=== PATIENT | female | born 1940 | race Caucasian/White ===

== ENCOUNTER → 2024-11-26 | Outpatient (CLI) | payer OTHER, SELFPAY ==
[2024-11-26 16:12] LABS: Hematocrit 38.4 % (37-47); Hemoglobin 12.0 g/dL (12.0-15.0); Immature Granulocytes Count 0.030 X10^3/uL (0.0-0.0); Mean Corp Hgb Conc 31.3 g/dL (32-36); Mean Corpuscular Volume 91.2 fL (81-99); Mean Platelet Vol. 11.1 fl (6.2-12.0); NRBC Flagged by Analyzer 0 % (0-5); Platelet Count 302 K/mm3 (150-450); RBC Distribution Width CV 13.2 % (11.6-14.6); RBC Distribution Width SD 44.0 fl (35.1-43.9); Red Blood Count 4.21 M/mm3 (4.2-5.4); White Blood Count 8.0 K/mm3 (4.4-11.0)
[2024-11-26 17:17] LABS: AST(SGOT) 27 U/L (<=31); Alanine Aminotransfer ALT/SGPT 17 U/L (<=34); Albumin, Serum 3.8 g/dL (3.4-4.8); Alkaline Phosphatase 105 U/L (35-104); Anion Gap 13 (5-15); BUN 12 mg/dL (4-19); BUN/Creat Ratio 16.3 RATIO (10-20); Calcium,Total 9.5 mg/dL (7.6-11.0); Carbon Dioxide 19.6 mmol/L (21.0-32.0); Chloride 105 mmol/L (98-108); Cholesterol 265 mg/dL (<=200); Globulin 3.2 g/dL (2.2-4.2); Glucose 92 mg/dL (70-99); Low Density Lipoprotein Calc. 186 mg/dL; Potassium 4.4 mmol/L (3.3-5.1); Triglycerides 103 mg/dL; Very Low Density Lipoprotein 21 mg/dL (5-40); Vitamin D,25 Hydroxy 25.6 ng/mL (30-100); cholesterol:hdl ratio screen 4.52
[2024-11-26 17:28] LABS: Hepatitis C Antibody Nonreactive (Nonreactive)
== END | disposition home or self-care (01) ==
LOC: POLAB3 15:26
PROVIDERS: PCP Family Medicine Geriatric Medicine; Visit Provider Family Medicine Geriatric Medicine
DX: E03.9 Hypothyroidism, unspecified (principal); Z13.89 Encounter for screening for other disorder; E55.9 Vitamin D deficiency, unspecified
CPT/HCPCS: 36415; 80053; 80061; 82306; 84443; 85025; 86803

== ENCOUNTER → 2024-11-29 | Outpatient (CLI) | payer OTHER, SELFPAY ==
--- NOTE | 2024-11-29 08:00 | RAD_ITS ---
PROCEDURE: ABD INC DECUB AND/OR ERECT 11/29/2024 REASON FOR EXAM: CHRONIC DIARRHEA TECHNIQUE: Three-view supine and upright abdomen COMPARISON: None. RAD/Abd Inc Decub and/or Erect IMPRESSION: No evidence of pneumoperitoneum. Right hemidiaphragm elevation is noted. A partially calcified aorta is seen. Minimal left and mild right sacroiliac joint degenerative changes are seen. [id number] degenerative changes are seen throughout the spine. The bowel-gas pattern is unremarkable. No excess stool burden is seen. No mass or mass effect is noted. Reading Location: [place] [id number]
== END | disposition home or self-care (01) ==
LOC: RAD 07:52
PROVIDERS: PCP Family Medicine Geriatric Medicine; Referring Provider Family Medicine Geriatric Medicine; Visit Provider Family Medicine Geriatric Medicine
DX: K52.9 Noninfective gastroenteritis and colitis, unspecified (principal)
CPT/HCPCS: 74019

== ENCOUNTER → 2024-12-31 | Outpatient (CLI) | payer OTHER, SELFPAY ==
--- NOTE | 2024-12-31 10:57 | RAD_ITS ---
PROCEDURE: KNEE 3 VIEWS 12/31/2024 REASON FOR EXAM: LEG CRAMPS TECHNIQUE: Procedure Code: RADPAT Modality: DX Procedure: KNEE 3 VIEWS Laterality: FINDINGS: No evidence acute fracture or dislocation. Moderate degenerative changes of the knee. No knee joint effusion. RAD/Knee 3 Views IMPRESSION: No acute osseous abnormalities. Osteoarthrosis. Reading Location: [id number]
== END | disposition home or self-care (01) ==
LOC: RAD 10:52
PROVIDERS: PCP Family Medicine Geriatric Medicine; Referring Provider Family Medicine Geriatric Medicine; Visit Provider Family Medicine Geriatric Medicine
DX: R25.2 Cramp and spasm (principal)
CPT/HCPCS: 73562

== ENCOUNTER → 2025-02-06 | Outpatient (CLI) | payer MEDICARE, SELFPAY ==
[2025-02-06 11:38] LABS: Cholesterol 285 mg/dL (<=200); Low Density Lipoprotein Calc. 211 mg/dL; Triglycerides 68 mg/dL; Very Low Density Lipoprotein 14 mg/dL (5-40); cholesterol:hdl ratio screen 4.69
== END | disposition home or self-care (01) ==
PROVIDERS: PCP Family Medicine Geriatric Medicine; Referring Provider Internal Medicine Cardiovascular Disease; Visit Provider Internal Medicine Cardiovascular Disease
DX: I10 Essential (primary) hypertension (principal); I25.10 Atherosclerotic heart disease of native coronary artery without angina pectoris; Z86.79 Personal history of other diseases of the circulatory system; Z95.0 Presence of cardiac pacemaker
CPT/HCPCS: 36415; 80061

== ENCOUNTER → 2025-02-14 | Outpatient (CLI) | payer MEDICARE, SELFPAY ==
[2025-02-14 12:18] LABS: Hematocrit 37.1 % (37-47); Hemoglobin 11.7 g/dL (12.0-15.0); Immature Granulocytes Count 0.040 X10^3/uL (0.0-0.0); Mean Corp Hgb Conc 31.5 g/dL (32-36); Mean Corpuscular Volume 89.4 fL (81-99); Mean Platelet Vol. 10.4 fl (6.2-12.0); NRBC Flagged by Analyzer 0 % (0-5); Platelet Count 282 K/mm3 (150-450); RBC Distribution Width CV 13.1 % (11.6-14.6); RBC Distribution Width SD 42.8 fl (35.1-43.9); Red Blood Count 4.15 M/mm3 (4.2-5.4); White Blood Count 8.9 K/mm3 (4.4-11.0)
[2025-02-14 12:38] LABS: Iron 66 ug/dL (50-170); Iron Binding Capacity,Total 397 ug/dL (250-450); Iron Binding Capacity,Unsat 331 ug/dL (228-428)
[2025-02-14 12:58] LABS: Ferritin 47 ng/mL (22-378)
== END | disposition home or self-care (01) ==
LOC: LAB 11:29
PROVIDERS: PCP Family Medicine Geriatric Medicine; Referring Provider Internal Medicine Pulmonary Disease; Visit Provider Internal Medicine Pulmonary Disease
DX: G25.81 Restless legs syndrome (principal)
CPT/HCPCS: 36415; 82728; 83540; 83550; 85025

== ENCOUNTER → 2025-02-27 | Outpatient (CLI) | payer MEDICARE, SELFPAY ==
[2025-02-27 08:59] LABS: Hematocrit 38.7 % (37-47); Hemoglobin 11.9 g/dL (12.0-15.0); Immature Granulocytes Count 0.040 X10^3/uL (0.0-0.0); Mean Corp Hgb Conc 30.7 g/dL (32-36); Mean Corpuscular Volume 89.6 fL (81-99); Mean Platelet Vol. 10.2 fl (6.2-12.0); NRBC Flagged by Analyzer 0 % (0-5); Platelet Count 271 K/mm3 (150-450); RBC Distribution Width CV 13.0 % (11.6-14.6); RBC Distribution Width SD 43.0 fl (35.1-43.9); Red Blood Count 4.32 M/mm3 (4.2-5.4); White Blood Count 8.9 K/mm3 (4.4-11.0)
--- NOTE | 2025-02-27 09:45 | RAD_ITS ---
PROCEDURE: RIBS UNI MIN 3V W/PA CHEST 02/27/2025 REASON FOR EXAM: RIB PAIN LEFT SIDE TECHNIQUE: Procedure Code: RADRIB Modality: DX Procedure: RIBS UNI MIN 3V W/PA CHEST COMPARISON: None FINDINGS: The heart is mildly enlarged. The aorta is atherosclerotic. Dual lead pacemaker has leads over the right atrium and right ventricular apex. No pleural effusion or pneumothorax. No fracture seen. RAD/Ribs Uni Min 3V w/PA Chest IMPRESSION: No fracture. No pneumothorax Reading Location: [id number]
[2025-02-27 09:53] LABS: AST(SGOT) 23 U/L (<=31); Alanine Aminotransfer ALT/SGPT 15 U/L (<=34); Albumin, Serum 3.9 g/dL (3.4-4.8); Alkaline Phosphatase 108 U/L (35-104); Anion Gap 10 (5-15); BUN 17 mg/dL (4-19); BUN/Creat Ratio 23.8 RATIO (10-20); Calcium,Total 9.4 mg/dL (7.6-11.0); Carbon Dioxide 24.3 mmol/L (21.0-32.0); Chloride 104 mmol/L (98-108); Globulin 3.1 g/dL (2.2-4.2); Glucose 113 mg/dL (70-99); Potassium 4.5 mmol/L (3.3-5.1); Vitamin D,25 Hydroxy 26.5 ng/mL (30-100)
[2025-02-27 16:45] LABS: Xtra Tube Kwok EXTRA TUBE
== END | disposition home or self-care (01) ==
LOC: POLAB3 08:44 → RAD 09:39
PROVIDERS: PCP Family Medicine Geriatric Medicine; Visit Provider Family Medicine Geriatric Medicine
DX: R07.81 Pleurodynia (principal); R53.83 Other fatigue; E55.9 Vitamin D deficiency, unspecified
CPT/HCPCS: 36415; 71101; 80053; 82306; 84443; 85025

== ENCOUNTER → 2025-03-05 | Outpatient (CLI) | payer MEDICARE, SELFPAY ==
--- NOTE | 2025-03-05 12:50 | ECHOCS_ITS ---
Reason For Study Reason For Study: DYSPNEA ON EXERTION Procedure This was a 2D Doppler, Color Flow transthoracic echocardiogram. The study was technically difficult. Due to body habitus, PT had recent fall with injury to left rib spaces. Contrast injection was performed. Exam performed in department. Left Ventricle Normal size and thickness. Apical, inferior and anterior hypokinesis. Estimated LVEF 40-45%. Stage I diastolic dysfunction. Paced septal motion. Right Ventricle Normal right ventricle. ICD or pacer leads identified within the right ventricle. Atria The left atrium is mildly enlarged. Normal right atrium. ICD or pacer leads identified within the right atrium. Mitral Valve There is Moderate focal posterior mitral annular calcification. Trivial mitral valve insufficiency. Tricuspid Valve Trivial tricuspid valve insufficiency. Normal pulmonary artery pressure. Aortic Valve Trisinus/trileaflet aortic valve. Mild-Moderate (1-2+) aortic valve insufficiency. Pulmonic Valve The pulmonic valve is not well visualized. Great Vessels Normal sized aortic root. Pericardium/Pleural No pericardial effusion. Medication 22 gauge I.V. with prn adaptor inserted into left arm. Diluted definity 2.0ml given slow IV push to enhance endocardial definition. MMode/2D Measurements & Calculations LVIDd: 5.6 cm IVSd: 0.87 cm LVOT diam: 2.0 cm LVIDs: 3.9 cm LVPWd: 1.00 cm RVDd: 3.5 cm FS: 30.8 % LVOT area: 3.2 cm2 Ao root diam: 3.1 cm LAV(MOD-bp): 85.5 ml LVAd ap4: 28.8 cm2 LAV(MOD-bp) Indexed: 43.5 ml/m2 LVLd ap4: 7.7 cm LAV(MOD-sp2): 72.3 ml EDV(MOD-sp4): 93.3 ml LAV(MOD-sp4): 98.2 ml EDV(sp4-el): 91.4 ml LVAs ap4: 19.9 cm2 LVLs ap4: 7.2 cm ESV(MOD-sp4): 48.7 ml ESV(sp4-el): 46.7 ml EF(MOD-sp4): 47.9 % EF(sp4-el): 48.8 % SV(MOD-sp4): 44.7 ml SV(sp4-el): 44.6 ml LA A4 area: 28.0 cm2 SI(MOD-sp4): 22.7 ml/m2 LA dimension(2D): 4.5 cm RA A4 area: 14.2 cm2 TAPSE: 2.1 cm Time Measurements MV dec time: 0.22 sec Doppler Measurements & Calculations MV E max benjamín: 72.4 cm/sec Lat Peak E' [place]: 7.2 cm/sec Med Peak E' [place]: 5.6 cm/sec MV A max benjamín: 134.3 cm/sec E/E' lat: 10.1 E/E' med: 13.1 MV E/A: 0.54 MV V2 max: 153.0 cm/sec MV P1/2t max benjamín: 93.7 cm/sec Ao V2 max: 200.5 cm/sec MV max P.4 mmHg MV P1/2t: 75.9 msec Ao max P.1 mmHg MV V2 mean: 80.0 cm/sec MV dec slope: 361.5 cm/sec2 Ao V2 mean: 142.6 cm/sec MV mean P.0 mmHg MVA(P1/2t): 2.9 cm2 Ao mean P.2 mmHg MV V2 VTI: 32.2 cm Ao V2 VTI: 44.7 cm MVA(VTI): 3.1 cm2 AV (velocity ratio): 0.69 BENNIE(I,D): 2.2 cm2 BENNIE(V,D): 2.2 cm2 AI max benjamín: 472.9 cm/sec LV V1 max: 136.8 cm/sec SV(LVOT): 99.2 ml AI max P.5 mmHg LV V1 max P.5 mmHg LV V1 mean P.6 mmHg AI dec slope: 363.0 cm/sec2 LV V1 mean: 103.0 cm/sec AI P1/2t: 381.6 msec LV V1 VTI: 31.0 cm PA V2 max: 124.8 cm/sec TR max benjamín: 257.0 cm/sec TR max P.4 mmHg ECHO/Echo Complete W/ Contrast Interpretation Summary Apical, inferior and anterior hypokinesis. Estimated LVEF 40-45%. Stage I diast olic dysfunction. The left atrium is mildly enlarged. There is Moderate focal posterior mitral annular calcification. Mild-Moderate (1-2+) aortic valve insufficiency. The study was technically difficult. Ordering Physician: Paty Garcia Referring Physician: Buster Jones Chi Performed By: Yudith Juárez, RDCS, RVT
== END | disposition home or self-care (01) ==
PROVIDERS: PCP Family Medicine Geriatric Medicine; Referring Provider Internal Medicine Cardiovascular Disease; Visit Provider Internal Medicine Cardiovascular Disease
DX: R06.09 Other forms of dyspnea (principal)
CPT/HCPCS: 93306; Q9957; A4216; C8929

== ENCOUNTER 2025-04-03 22:44 | Emergency (ER) | payer MEDICARE, SELFPAY ==
[2025-04-03 22:45] VITALS: PULSE 88; RESP 18; TEMP 37.1; O2SAT 93; BMI 41.5
[2025-04-03 22:52] VITALS: BP 185/94
--- NOTE | 2025-04-03 23:00 | CT_ITS ---
PROCEDURE: ABDOMEN/PELVIS W IV CONT ONLY 04/04/2025 REASON FOR EXAM: RIGHT FLANK PAIN TECHNIQUE: Procedure Code: [id number] Modality: CT Procedure: ABDOMEN/PELVIS W IV CONT ONLY Coronal and Sagittal reconstruction series were provided. CONTRAST: isovue [id number] VOLUME: 100 mL One or more dose reduction techniques were used (e.g., Automated exposure control, adjustment of the mA and/or kV according to patient size, use of iterative reconstruction technique. RADIATION DOSE SUMMARY: CTDI Vol 13.71 mGy DLP :713.64 mGycm COMPARISON: none FINDINGS: Average sized liver showing homogenous parenchymal attenuation. No dilated intra or extra-hepatic biliary tracts. Gall bladder showing no radiodense calculi. A small 13 mm left retro-peritoneal cystic lesion seen centered upon the left adrenal gland lateral limb/pancreas. Otherwise, normal appearance of the pancreas with clear surrounding fat planes. Few splenic hypodense cysts, the largest 22 mm. The right adrenal gland and IVC are unremarkable. Both kidneys are of average size and showing smooth outline with preserved parenchymal thickness. No renal calculi. No hydronephrosis. Right renal hypodense cortical cyst. Distension of the urinary bladder showing no obvious masses. No obvious masses related to the pelvic viscera. The appendix is not identified. No right iliac inflammatory changes. Colonic fecal loading. Colonic diverticulosis. No diverticulitis. The small bowel loops are unremarkable. Moderate to large sized hiatus hernia. No ascites or free air. No obvious pathologically enlarged lymph nodes. Vascular atheromatous calcifications. Scanned osseous structures show no osseous destruction. Thoracolumbar spondylosis. Scanned lung bases show cardiomegaly. Sternotomy suture wires are noted. Mild right pleural effusion. Bilateral basal atelectatic changes. CT/Abdomen/Pelvis W IV Cont ONLY IMPRESSION: No acute pelvi-abdominal abnormalities, collections or free air. Moderate to large sized hiatus hernia. Colonic diverticulosis. No diverticulitis. Cardiomegaly. Mild right pleural effusion. Reading Location: [place] [id number]
[2025-04-03] MEDS: 0.9% Normal Saline (1000mL) 1,000 ML 999 ML IV (23:18)
[2025-04-03 23:29] LABS: Hematocrit 36.1 % (37-47); Hemoglobin 11.6 g/dL (12.0-15.0); Immature Granulocytes Count 0.040 X10^3/uL (0.0-0.0); Mean Corp Hgb Conc 32.1 g/dL (32-36); Mean Corpuscular Volume 88.5 fL (81-99); Mean Platelet Vol. 10.2 fl (6.2-12.0); NRBC Flagged by Analyzer 0 % (0-5); Platelet Count 312 K/mm3 (150-450); RBC Distribution Width CV 13.9 % (11.6-14.6); RBC Distribution Width SD 45.1 fl (35.1-43.9); Red Blood Count 4.08 M/mm3 (4.2-5.4); White Blood Count 12.0 K/mm3 (4.4-11.0)
--- OUTSIDE RECORDS SUMMARY | 2025-04-03 23:40 | XMS RPT_ITS | CCD ---
Author Organization [facility] Care Team Providers Care Biologics Specialist Name Role Phone Robert CLEANING, Dr. Buster Hamilton Primary Care Provider Robert CLEANING, Dr. Buster Hamilton Attending Provider Robert CLEANING, Dr. Buster Hamilton Referring Provider Robert CLEANING, Dr. Buster Hamilton Primary Care Physician Robert CLEANING, Dr. Buster Hamilton Attending Physician Denise Koehler Attending Physician Unavailable Jose CLEANING, Dr. Newman Attending Physician Norma CLEANING, Dr. Hdez Attending Physician Dr. Paty Garcia MD Referring Provider Bernda CLEANING, Dr. Francois Ramos Attending Physician Brenda CLEANING, Dr. Francois Ramos Referring Provider [phone] Robert, Buster Chi Referring Unavailable Robert, Buster Chi Primary Care Unavailable Robert, Buster Chi Attending Unavailable Robert, Buster Chi Referring Unavailable Robert, Buster Chi Primary Care Unavailable Robert, Buster Chi Attending Unavailable SibiliaFrancois V Referring Unavailable Robert, Buster Chi Primary Care Unavailable SibiliaFrancois V Attending Unavailable Robert, Buster Chi Primary Care Unavailable Robert, Buster Chi Attending Unavailable Robert, Buster Chi Referring Unavailable Robert, Buster Chi Primary Care Unavailable Robert, Buster Chi Attending Unavailable Robert, Buster Chi Primary Care Unavailable Robert, Buster Chi Attending Unavailable Robert, Buster Chi Primary Care Unavailable Luis Garciad Attending Unavailable Paty Garcia Referring Unavailable Norma, [place] Attending Unavailable Norma, Lemuel Referring Unavailable Robert, Buster Chi Primary Care Unavailable Norma [place] Attending Unavailable Norma, [place] Referring Unavailable Robert, Buster Chi Primary Care Unavailable Robert, Buster Chi Primary Care Unavailable Paty Garcia Attending Unavailable Robert, Buster Chi Referring Unavailable Robert, Buster Chi Primary Care Unavailable Paty Garcia Attending Unavailable Paty Garcia Referring Unavailable Robert, Buster Chi Primary Care Unavailable Robert, Buster Chi Attending Unavailable Dr. Buster Jones MD, Chi Primary Care Physician [phone] Dr. Buster Jones MD, Chi Attending Physician [phone] Buster Jones MD, Chi Referring Provider Norma CLEANING, Dr. Hdez Attending Physician Dr. Lemuel Green MD Referring Provider Dr. Paty Garcia MD Attending Physician Jose CLEANING, Dr. Newman Referring Provider Dr. Francois Gutierrez MD, V Attending Physician Dr. Francois Gutierrez MD, V Referring Provider Allergies Allergy Classification Reported Allergen(s) Allergy Type Date of Onset Reaction(s) Facility (4 sources) Adhesive Tape; Translations: [adhesive tape] Allergy to substance 5 unknown [facility] (3 sources) Alendronate Drug Allergy 5 unknown [facility] (3 sources) cow milk allergenic extract Drug Allergy 5 Diarrhea [facility] (3 sources) egg extract Drug Allergy 5 Diarrhea [facility] (3 sources) Sulfonamides (Antibiotic) Allergy to substance 5 unknown [facility] (3 sources) Urqrcgb-Bff-Adz Reductase Inhibitor Allergy to substance 5 unknown [facility] (1 source) Alendronate Drug Allergy 5 [facility] Repository (1 source) egg extract Drug Allergy 5 [facility] Repository (1 source) Milk Drug allergy (disorder) 5 [facility] Repository (1 source) Sulfonamides (Antibiotic) Drug allergy (disorder) 5 [facility] Repository (1 source) Ryixrdu-Fjr-Qja Reductase Inhibitor Drug allergy (disorder) [facility] Repository Medications Current Medications Medication Drug Class(es) Dates Sig (Normalized) Sig (Original) Hmfyz-E-Essabbruxtcx e tablet (3 sources) Start: 02-06-2025 take 1 tablet by mouth once daily Start: 02-06-2025 take 1 tablet by mouth once da millie apixaban 5 mg oral tablet (3 sources) Factor Xa Inhibitor Start: 01-28-2025 take 1 tablet by mouth twice daily cetirizine hydrochloride 10 mg oral tablet (3 sources) Histamine-1 Receptor Antagonist Start: 01-28-2025 take 1 tablet by mouth once daily Cranberry Extract (3 sources) Non-Standardized Food Allergenic Extract, Non-Standardized Plant Allergenic Extract Start: 01-28-2025 take 1 capsule by mouth once daily Start: 01-28-2025 take 1 capsule by mouth once d aily levothyroxine sodium 0.137 mg oral capsule (3 sources) l-Thyroxine Start: 01-28-2025 take 1 capsule by mouth once daily metoprolol tartrate 25 mg oral tablet (6 sources) beta-Adrenergic Isaac Start: 02-06-2025 End: 02-06-2025 take 1 tablet by mouth twice daily rOPINIRole 1 mg oral tablet (3 sources) Nonergot Dopamine Agonist Start: 01-28-2025 take 1 tablet by mouth once daily sertraline 100 mg oral tablet (3 sources) Serotonin Reuptake Inhibitor Start: 01-28-2025 take 1 tablet by mouth once daily Completed/Discontinued Medications Medication Drug Class(es) Dates Sig (Normalized) Sig (Original) aspirin 81 mg oral tablet (3 sources) Platelet Aggregation Inhibitor, Nonsteroidal Anti-inflammatory Drug Start: 01-28-2025 End: 01-28-2025 take 1 tablet by mouth once daily Aspirin 81 mg tablet Discontinued 81 mg PO daily January 27, 2025 11:00pm January 28, 2025 9:47am carbidopa 25 mg / levodopa 100 mg disintegrating oral tablet (3 sources) Aromatic Amino Acid Decarboxylation Inhibitor, Aromatic Amino Acid Start: 01-28-2025 End: 02-06-2025 Carbidopa-Levodop a 25-100 mg tablet,disintegra ting Discontinued 1 {tbl} PO THREE TIMES A DAY January 27, 2025 11:00pm February 06, 2025 7:57am Magnesium Chloride 64 mg magnesium tablet (3 sources) Start: 01-28-2025 End: 02-06-2025 take 1 tablet by mouth once daily Magnesium Chloride 64 mg magnesium tablet Discontinued 64 mg PO DAILY January 27, 2025 11:00pm February 06, 2025 7:57am Start: 01-28-2025 End: 02-06-2025 take 1 tablet by mouth once daily Magnesium Chloride 64 mg magnesium tablet Discontinued 64 mg PO DAILY January 28, 2025 12:00am February 06, 2025 8:57am vitamin e 450 mg oral capsul e (3 sources) Start: 01-28-2025 End: 02-06-2025 Vitamin E Mixed 1,000 unit capsule Discontinued 1000 U PO DAILY January 27, 2025 11:00pm February 06, 2025 7:57am Problems Problem Classification Problem Date Documented Date Episodic/Chronic Conduction disorders (13 sources) H/O: cardiac pacemaker in situ; Translations: [Presence of cardiac pacemaker] Onset: 5 02-06-2025 Chronic Coronary atherosclerosis and other heart disease (7 sources) Coronary arteriosclerosis; Translations: [Atherosclerotic heart disease of gray[place] coronary artery without angina pectoris] Onset: 5 02-06-2025 Chronic Essential hypertension (7 sources) Hypertensive disorder; Translations: [Essential (primary) hypertension] Onset: 5 02-06-2025 Chronic Malaise and fatigue (1 source) Other fatigue; Translations: [Other fatigue] Onset: Episodic Mood disorders (3 sources) Depressive disorder; Translations: [Depression] 01-28-2025 Chronic Noninfectious gastroenteritis (1 source) Noninfective gastroenteritis and colitis, unspecified; Translations: [Noninfective gastroenteritis and colitis, unspecified] Onset: 5 Episodic Nonspecific chest pain (1 source) Other chest pain; Translations: [Other chest pain] Onset: 5 Episodic Nutritional deficiencies (1 source) Vitamin D deficiency, unspecified; Translations: [Vitamin D deficiency, unspecified] Onset: Chronic Other circulatory disease (9 sources) History of heart block; Translations: [Personal history of other diseases of the circulatory system] 02-06-2025 Episodic Other circulatory disease (1 source) Personal history of other diseases of the circulatory system; Translations: [Personal history of other diseases of the circulatory system] Onset: 5 Episodic Other connective tissue disease (1 source) Cramp and spasm; Translations: [Cramp and spasm] Onset: 5 Episodic Other hereditary and degenerative nervous system conditions (3 sources) Restless legs; Translations: [Restless legs syndrome] 01-28-2025 Chronic Other hereditary and degenerative nervous system conditions (1 source) Restless legs syndrome; Translations: [Restless legs syndrome] Onset: 5 Chronic Other lower respiratory disease (2 sources) Other forms of dyspnea; Translations: [Other forms of dyspnea] Onset: 5 Episodic Other screening for suspected conditions (not mental disorders or infectious disease) (2 sources) Abnormal electrocardiogram [ECG] [EKG]; Translations: [Abnormal electrocardiogram [ECG] [EKG]] Onset: 5 Episodic Pulmonary heart disease (7 sources) H/O: pulmonary embolus; Translations: [Personal history of pulmonary embolism] Onset: 5 02-06-2025 Episodic Residual codes; unclassified (3 sources) Sleep apnea; Translations: [Sleep apnea, unspecified] 01-28-2025 Chronic Thyroid disorders (5 sources) Hypothyroidism; Translations: [Hypothyroidism, unspecified] Onset: 5 01-28-2025 Chronic Results Test Name Value Interpretation Reference Range Facility Absolute lymphocyte countOrd ered By: Buster Jones on 02-27-2025 Lymphocytes Auto (Unsp spec) [#/Vol] 2.46 10*3/uL 0.83-4.51 [facility] Absolute neutrophil countOrd ered By: Buster Jones on 02-27-2025 Neutrophils (Bld) [#/Vol] 5.5 10*3/uL 2.0-7.7 [facility] Anion gap in Serum or Plasma Ordered By: Buster Jones on 02-27-2025 Anion gap [Moles/Vol] 10 mmol/L 5-15 [facility] Automated lymphocyte count a s percentage of total leukocytesOrdered By: Buster Jones on 02-27-2025 Lymphocytes/100 WBC Auto (Unsp spec) 27.8 % 19-41 [facility] BUN/creatinine ratioOrdered By: Buster Jones on 02-27-2025 Urea nitrogen/Creatinine [Mass ratio] 23.8 mg/mg High 10-20 [facility] Basophil percentageOrdered B y: Buster Jones on 02-27-2025 Basophils/100 WBC (Bld) 0.6 % 0-1 [facility] Bilirubin, totalOrdered By: Buster Jones on 02-27-2025 Bilirubin [Mass/Vol] 0.38 mg/dL 0.00-1.[address] [facility] CBC W/Diff, Automatedon Absolute Lymph 2.46 X10 3/uL Normal 0.83-4.51 [facility] Comment on above: Performed By: #### L 501.9520, L100.0100, L506.1001, L500.4050 ####[facility] [address] [place], [address] Absolute Neut 5.5 X10 3/uL Normal 2.0-7.7 [facility] Comment on above: Performed By: #### L 501.9520, L100.0100, L506.1001, L500.4050 ####[facility] [address] [place], [address] Basophils/100 WBC (Bld) 0.6 % Normal 0-1 [facility] Comment on above: Performed By: #### L 501.9520, L100.0100, L506.1001, L500.4050 ####[facility] [address] [place], [address] Eosinophils/100 WBC (Bld) 1.2 % Normal 0-5 [facility] Comment on above: Performed By: #### L 501.9520, L100.0100, L506.1001, L500.4050 ####[facility] [address] [place], [address] Erythrocyte distribution width (RBC) [Ratio] 13.0 % Normal 11.6-14.6 [facility] Comment on above: Performed By: #### L 501.9520, L100.0100, L506.1001, L500.4050 ####[facility] [address], [address] Hematocrit (Bld) [Volume fraction] 38.7 % Normal 37-47 [facility] Comment on above: Performed By: #### L 501.9520, L100.0100, L506.1001, L500.4050 ####[facility] [address] [place], [address] Hemoglobin (Bld) [Mass/Vol] 11.9 g/dL Low 12.0-15.0 [facility] Comment on above: Performed By: #### L 501.9520, L100.0100, L506.1001, L500.4050 ####[facility] [address], [address] IG% 0.500 Normal 0.0-0.9 [facility] Comment on above: Result Comment: IG% - Immature Granulocytes (promyelocytes, myelocytes and metamyelocytes) > 1% indicates that a LEFT SHIFT is Present. Performed By: #### L 501.9520, L100.0100, L506.1001, L500.4050 ####[facility] [address] [place], [address] Lymphocytes/100 WBC (Bld) 27.8 % Normal 19-41 [facility] Comment on above: Performed By: #### L 501.9520, L100.0100, L506.1001, L500.4050 ####[facility] [address] [place], [address] MCH (RBC) [Entitic mass] 27.5 pg Normal 27.0-32.0 [facility] Comment on above: Performed By: #### L 501.9520, L100.0100, L506.1001, L500.4050 ####[facility] [address] [place], [address] MCHC (RBC) [Mass/Vol] 30.7 g/dL Low 32-36 [facility] Comment on above: Performed By: #### L 501.9520, L100.0100, L506.1001, L500.4050 ####[facility] [address] [place], [address] MCV (RBC) [Entitic vol] 89.6 fL Normal 81-99 [facility] Comment on above: Performed By: #### L 501.9520, L100.0100, L506.1001, L500.4050 ####[facility] [address] [place], [address] Monocytes/100 WBC (Bld) 7.8 % Normal 0-10 [facility] Comment on above: Performed By: #### L 501.9520, L100.0100, L506.1001, L500.4050 ####[facility] [address] [place], [address] Neutrophils/100 WBC (Bld) 62.1 % Normal 47-70 [facility] Comment on above: Performed By: #### L 501.9520, L100.0100, L506.1001, L500.4050 ####[facility] [address] [place], [address] Nucleated RBC (Bld) [#/Vol] 0 10*3/uL Normal 0-5 [facility] Comment on above: Performed By: #### L 501.9520, L100.0100, L506.1001, L500.4050 ####[facility] [address] [place], [address] Platelet mean volume (Bld) [Entitic vol] 10.2 fL Normal 6.2-12.0 [facility] Comment on above: Performed By: #### L 501.9520, L100.0100, L506.1001, L500.4050 ####[facility] [address] [place], [address] Platelets (Bld) [#/Vol] 271 10*3/uL Normal 150-450 [facility] Comment on above: Performed By: #### L 501.9520, L100.0100, L506.1001, L500.4050 ####[facility] [address] [place], [address] RBC (Bld) [#/Vol] 4.32 10*6/uL Normal 4.2-5.4 [facility] Comment on above: Performed By: #### L 501.9520, L100.0100, L506.1001, L500.4050 ####[facility] [address] [place], [address] RDW SD 43.0 fl Normal 35.1-43.9 [facility] Comment on above: Performed By: #### L 501.9520, L100.0100, L506.1001, L500.4050 ####[facility] [address] [place], [address] WBC (Bld) [#/Vol] 8.9 10*3/uL Normal 4.4-11.0 [facility] Comment on above: Performed By: #### L 501.9520, L100.0100, L506.1001, L500.4050 ####[facility] [address] [place], [address] Carbon dioxide, total [Moles /volume] in Central venous bloodOrdered By: Buster Jones on 02-27-2025 CO2 [Moles/Vol] 24.3 mmol/L 21.0-32.0 [facility] Chloride assayOrdered By: Tee Jones on 02-27-2025 Chloride [Moles/Vol] 104 mmol/L 98-[address] [facility] Comprehensive Metabolic Prof ilon 02-27-2025 Albumin [Mass/Vol] 3.9 g/dL Normal 3.4-4.8 [facility] Comment on above: Performed By: #### L 501.9520, L100.0100, L506.1001, L500.4050 ####[facility] [address] [place], [address] Albumin/Globulin [Mass ratio] 1.3 {ratio} Normal 0.9-2.4 [facility] Comment on above: Performed By: #### L 501.9520, L100.0100, L506.1001, L500.4050 ####[facility] [address] [place], [address] ALK PHOS 108 U/L High 35-104 [facility] Comment on above: Performed By: #### L 501.9520, L100.0100, L506.1001, L500.4050 ####[facility] [address] [place], [address] ALT [Catalytic activity/Vol] 15 U/L Normal <=34 [facility] Comment on above: Performed By: #### L 501.9520, L100.0100, L506.1001, L500.4050 ####[facility] [address] [place], [address] AST [Catalytic activity/Vol] 23 U/L Normal <=31 [facility] Comment on above: Performed By: #### L 501.9520, L100.0100, L506.1001, L500.4050 ####[facility] [address] [place], [address] Bilirubin [Mass/Vol] 0.38 mg/dL Normal 0.00-1.[address] [facility] Comment on above: Performed By: #### L 501.9520, L100.0100, L506.1001, L500.4050 ####[facility] [address] [place], [address] BUN/CRE 23.8 RATIO High 10-20 [facility] Comment on above: Performed By: #### L 501.9520, L100.0100, L506.1001, L500.4050 ####[facility] [address] [place], [address] Calcium [Mass/Vol] 9.4 mg/dL Normal 7.6-11.0 [facility] Comment on above: Performed By: #### L 501.9520, L100.0100, L506.1001, L500.4050 ####[facility] [address] [place], [address] Chloride [Moles/Vol] 104 mmol/L Normal 98-[address] [facility] Comment on above: Performed By: #### L 501.9520, L100.0100, L506.1001, L500.4050 ####[facility] [address] [place], [address] CO2 [Moles/Vol] 24.3 mmol/L Normal 21.0-32.0 [facility] Comment on above: Performed By: #### L 501.9520, L100.0100, L506.1001, L500.4050 ####[facility] [address] [place], [address] Creatinine [Mass/Vol] 0.71 mg/dL Normal 0.70-1.20 [facility] Comment on above: Performed By: #### L 501.9520, L100.0100, L506.1001, L500.4050 ####[facility] [address] [place], [address] GAP 10 Normal 5-15 [facility] Comment on above: Performed By: #### L 501.9520, L100.0100, L506.1001, L500.4050 ####[facility] [address] [place], [address] GFR/1.73 sq M.predicted among non-blacks MDRD (S/P/Bld) [Vol rate/Area] 84 mL/min/{1.73_m2} Normal >60 [facility] Comment on above: Result Comment: mL/m in/1.73m2 CKD-EPI Creatinine Equation (2020) Performed By: #### L 501.9520, L100.0100, L506.1001, L500.4050 ####[facility] [address] [place], [address] Globulin (S) [Mass/Vol] 3.1 g/dL Normal 2.2-4.2 [facility] Comment on above: Performed By: #### L 501.9520, L100.0100, L506.1001, L500.4050 ####[facility] [address] [place], [address] Glucose [Mass/Vol] 113 mg/dL High 70-99 [facility] Comment on above: Performed By: #### L 501.9520, L100.0100, L506.1001, L500.4050 ####[facility] [address] [place], [address] Potassium [Moles/Vol] 4.5 mmol/L Normal 3.3-5.1 [facility] Comment on above: Performed By: #### L 501.9520, L100.0100, L506.1001, L500.4050 ####[facility] [address] [place], [address] Sodium [Moles/Vol] 138 mmol/L Normal 133-145 [facility] Comment on above: Performed By: #### L 501.9520, L100.0100, L506.1001, L500.4050 ####[facility] [address] [place], [address] T PROT 7.0 g/dL Normal 5.9-8.4 [facility] Comment on above: Performed By: #### L 501.9520, L100.0100, L506.1001, L500.4050 ####[facility] [address] [place], [address] Urea nitrogen [Mass/Vol] 17 mg/dL Normal 4-19 [facility] Comment on above: Performed By: #### L 501.9520, L100.0100, L506.1001, L500.4050 ####[facility] [address] [place], [address] Eosinophil percentageOrdered By: Buster Jones on 02-27-2025 Eosinophils/100 WBC (Bld) 1.2 % 0-5 [facility] Erythrocyte distribution wid th ratioOrdered By: Buster Jones on 02-27-2025 Erythrocyte distribution width (RBC) [Ratio] 13.0 % 11.6-14.6 [facility] Erythrocyte distribution wid th standard deviationOrdered By: Buster Jones on 02-27-2025 Erythrocyte distribution width (RBC) [Ratio] 43.0 fl 35.1-43.9 [facility] Glomerular filtration rate ( GFR) estimation/1.73 sq m using serum, plasma, or whole bOrdered By: Buster Jones on 02-27-2025 GFR/1.73 sq M.predicted among non-blacks MDRD (S/P/Bld) [Vol rate/Area] 84 mL/min/{1.73_m2} >60 [facility] Comment on above: mL/min/1.73m2 CKD-EP I Creatinine Equation (2020) Hematocrit Auto (Bld) [Volum e fraction]Ordered By: Buster Jones on 02-27-2025 Hematocrit (Bld) [Volume fraction] 38.7 % 37-47 [facility] Hemoglobin measurementOrdere d By: Buster Jones on 02-27-2025 Hemoglobin (Bld) [Mass/Vol] 11.9 g/dL Low 12.0-15.0 [facility] Immature granulocytes/100 WB C Auto (Bld)Ordered By: Buster Jones on 02-27-2025 Immature granulocytes/100 WBC (Bld) 0.500 % 0.0-0.9 [facility] Comment on above: IG% - Immature Granu locytes (promyelocytes, myelocytes and metamyelocytes) > 1% indicates that a LEFT SHIFT is Present. Laboratory - Chemistry and C hemistry - challengeOrdered By: Buster Jones on 02-27-2025 AST [Catalytic activity/Vol] 23 U/L <32 [facility] MCV (mean corpuscular volume ) determinationOrdered By: Buster Jones on 02-27-2025 MCV (RBC) [Entitic vol] 89.6 fL 81-99 [facility] Mean corpuscular hemoglobin (MCH) determinationOrdered By: Buster Jones on 02-27-2025 MCH (RBC) [Entitic mass] 27.5 pg 27.0-32.0 [facility] Mean corpuscular hemoglobin concentration (MCHC) determinationOrdered By: Buster Jones on 02-27-2025 MCHC (RBC) [Mass/Vol] 30.7 g/dL Low 32-36 [facility] Mean platelet volume determi nationOrdered By: Buster Jones on 02-27-2025 Platelet mean volume (Bld) [Entitic vol] 10.2 fL 6.2-12.0 [facility] Monocyte percentageOrdered B y: Buster Jones on 02-27-2025 Monocytes/100 WBC (Bld) 7.8 % 0-10 [facility] Neutrophil percentageOrdered By: Buster Jones on 02-27-2025 Neutrophils/100 WBC (Bld) 62.1 % 47-70 [facility] Nucleated red blood cell per centageOrdered By: Buster Jones on 02-27-2025 Nucleated RBC/100 WBC (Bld) [Ratio] 0 % 0-5 [facility] Platelet countOrdered By: Tee Jones on 02-27-2025 Platelets (Bld) [#/Vol] 271 10*3/uL 150-450 [facility] Potassium measurement (mass/ volume)Ordered By: Buster Jones on 02-27-2025 Potassium (Unsp spec) [Mass/Vol] 4.5 mmol/L 3.3-5.1 [facility] RBC Auto (Bld) [#/Vol]Ordere d By: Buster Jones on 02-27-2025 RBC (Bld) [#/Vol] 4.32 10*6/uL 4.2-5.4 [facility] Ribs Uni Min 3V w/PA Cheston 02-27-2025 Ribs Uni Min 3V w/PA Chest [facility] [address] [place] [address] Ribs Uni Min 3V w/PA Chest MR#: [id number] Acct: [id number] Name: GABE OCAMPO Rep #: [id number] : 1940 F 85 From: Merrill De Los Santos MD PCP: Dr. Buster Jones MD Status: REG CLI Study: Ribs Uni Min 3V w/PA Chest Date of Exam: 02/27 Exam# [id number] Ordering Dr: Buster Jones MD PROCEDURE: RIBS UNI MIN 3V W/PA CHEST 02/27/2025 REASON FOR EXAM: RIB PAIN LEFT SIDE TECHNIQUE: Procedure Code: RADRIB Modality: DX Procedure: RIBS UNI MIN 3V W/PA CHEST COMPARISON: None FINDINGS: The heart is mildly enlarged. The aorta is atherosclerotic. Dual lead pacemaker has leads over the right atrium and right ventricular apex. No pleural effusion or pneumothorax. No fracture seen. RAD/Ribs Uni Min 3V w/PA Chest IMPRESSION: No fracture. No pneumothorax Reading Location: [id number] CC: Dr. Buster Jones MD Counseling Case Manager: Signed Normal [facility] Serum creatinine measurement (mass/volume)Ordered By: Buster Jones on 02-27-2025 Creatinine [Mass/Vol] 0.71 mg/dL 0.70-1.20 [facility] Serum globulin measurementOr dered By: Buster Jones on 02-27-2025 Globulin (S) [Mass/Vol] 3.1 g/dL 2.2-4.2 [facility] Serum glucose measurement (m ass/volume)Ordered By: Buster Jones on 02-27-2025 Glucose [Mass/Vol] 113 mg/dL High 70-99 [facility] Serum or plasma alanine nelson otransferase (ALT) measurementOrdered By: Buster Jones on 02-27-2025 ALT [Catalytic activity/Vol] 15 U/L <35 [facility] Serum or plasma albumin leroy urement (mass/volume)Ordered By: Buster Jones on 02-27-2025 Albumin [Mass/Vol] 3.9 g/dL 3.4-4.8 [facility] Serum or plasma albumin/glob ulin mass ratioOrdered By: Buster Jones on 02-27-2025 Albumin/Globulin [Mass ratio] 1.3 {ratio} 0.9-2.4 [facility] Serum or plasma alkaline dominique sphatase measurementOrdered By: Buster Jones on 02-27-2025 ALP [Catalytic activity/Vol] 108 U/L High 35-104 [facility] Serum or plasma calcium leroy urement (mass/volume)Ordered By: Buster Jones on 02-27-2025 Calcium [Mass/Vol] 9.4 mg/dL 7.6-11.0 [facility] Serum or plasma urea nitroge n measurement (mass/volume)Ordered By: Buster Jones on 02-27-2025 Urea nitrogen [Mass/Vol] 17 mg/dL 4-19 [facility] Sodium levelOrdered By: Buster Jones on 02-27-2025 Sodium [Moles/Vol] 138 mmol/L 133-145 [facility] TSH DL <= 0.005 mIU/L QnOrde red By: Buster Jones on 02-27-2025 TSH Qn 5.530 uIU/mL High 0.300-4.200 [facility] Thyroid Stim Hormone (TSH)on 02-27-2025 TSH 5.530 uIU/mL High 0.300-4.200 [facility] Comment on above: Performed By: #### L 501.9520, L100.0100, L506.1001, L500.4050 ####[facility] [address] [place], [place], [address] Total proteinOrdered By: Buster Robert on 02-27-2025 Protein [Mass/Vol] 7.0 g/dL 5.9-8.4 [facility] Vitamin D,25 Hydroxyon 02-27 Vitamin D 25-OH 26.5 ng/mL Low 30-100 [facility] Comment on above: Result Comment: Shanita min D Status Deficiency: <20 ng/mL (50nmol/L) Insufficiency: 20-30 ng/mL (50-75 nmol/L) Sufficiency: 30-100 ng/mL (75-250 nmol/L) Toxicity: >100 ng/mL (>250 nmol/L) Performed By: #### L 501.9520, L100.0100, L506.1001, L500.4050 ####[facility] [address] [place], [place], [id number] White blood cell (WBC) count Ordered By: Buster Jones on 02-27-2025 WBC (Bld) [#/Vol] 8.9 10*3/uL 4.4-11.0 [facility] Absolute lymphocyte countOrd ered By: Francois Gutierrez on 02-14-2025 Lymphocytes Auto (Unsp spec) [#/Vol] 2.66 10*3/uL 0.83-4.51 [facility] Absolute neutrophil countOrd ered By: Francois Gutierrez on 02-14-2025 Neutrophils (Bld) [#/Vol] 5.4 10*3/uL 2.0-7.7 [facility] Automated lymphocyte count a s percentage of total leukocytesOrdered By: Francois Gutierrez on 02-14-2025 Lymphocytes/100 WBC Auto (Unsp spec) 30.0 % 19-41 [facility] Basophil percentageOrdered B y: Francois Gutierrez on 02-14-2025 Basophils/100 WBC (Bld) 0.7 % 0-1 [facility] CBC W/Diff, Automatedon 01-23 Absolute Lymph 2.66 X10 3/uL Normal 0.83-4.51 [facility] Comment on above: Performed By: #### L 100.0100, L503.6550, L503.6030 #### [facility] [address] [place], [address] Absolute Neut 5.4 X10 3/uL Normal 2.0-7.7 [facility] Comment on above: Performed By: #### L 100.0100, L503.6550, L503.6030 #### [facility] [address] [place], [address] Basophils/100 WBC (Bld) 0.7 % Normal 0-1 [facility] Comment on above: Performed By: #### L 100.0100, L503.6550, L503.6030 #### [facility] [address] [place], [address] Eosinophils/100 WBC (Bld) 1.6 % Normal 0-5 [facility] Comment on above: Performed By: #### L 100.0100, L503.6550, L503.6030 #### [facility] [address] [place], [address] Erythrocyte distribution width (RBC) [Ratio] 13.1 % Normal 11.6-14.6 [facility] Comment on above: Performed By: #### L 100.0100, L503.6550, L503.6030 #### [facility] [address] [place], [address] Hematocrit (Bld) [Volume fraction] 37.1 % Normal 37-47 [facility] Comment on above: Performed By: #### L 100.0100, L503.6550, L503.6030 #### [facility] [address] [place], [address] Hemoglobin (Bld) [Mass/Vol] 11.7 g/dL Low 12.0-15.0 [facility] Comment on above: Performed By: #### L 100.0100, L503.6550, L503.6030 #### [facility] [address] [place], [address] IG% 0.500 Normal 0.0-0.9 [facility] Comment on above: Result Comment: IG% - Immature Granulocytes (promyelocytes, myelocytes and metamyelocytes) > 1% indicates that a LEFT SHIFT is Present. Performed By: #### L 100.0100, L503.6550, L503.6030 #### [facility] [address] [place], [address] Lymphocytes/100 WBC (Bld) 30.0 % Normal 19-41 [facility] Comment on above: Performed By: #### L 100.0100, L503.6550, L503.6030 #### [facility] [address] [place], [address] MCH (RBC) [Entitic mass] 28.2 pg Normal 27.0-32.0 [facility] Comment on above: Performed By: #### L 100.0100, L503.6550, L503.6030 #### [facility] [address] [place], [address] MCHC (RBC) [Mass/Vol] 31.5 g/dL Low 32-36 [facility] Comment on above: Performed By: #### L 100.0100, L503.6550, L503.6030 #### [facility] [address] [place], [address] MCV (RBC) [Entitic vol] 89.4 fL Normal 81-99 [facility] Comment on above: Performed By: #### L 100.0100, L503.6550, L503.6030 #### [facility] [address] [place], [address] Monocytes/100 WBC (Bld) 6.5 % Normal 0-10 [facility] Comment on above: Performed By: #### L 100.0100, L503.6550, L503.6030 #### [facility] [address] [place], [address] Neutrophils/100 WBC (Bld) 60.7 % Normal 47-70 [facility] Comment on above: Performed By: #### L 100.0100, L503.6550, L503.6030 #### [facility] [address] [place], [address] Nucleated RBC (Bld) [#/Vol] 0 10*3/uL Normal 0-5 [facility] Comment on above: Performed By: #### L 100.0100, L503.6550, L503.6030 #### [facility] [address] [place], [address] Platelet mean volume (Bld) [Entitic vol] 10.4 fL Normal 6.2-12.0 [facility] Comment on above: Performed By: #### L 100.0100, L503.6550, L503.6030 #### [facility] [address] [place], [address] Platelets (Bld) [#/Vol] 282 10*3/uL Normal 150-450 [facility] Comment on above: Performed By: #### L 100.0100, L503.6550, L503.6030 #### [facility] [address] [place], [address] RBC (Bld) [#/Vol] 4.15 10*6/uL Low 4.2-5.4 [facility] Comment on above: Performed By: #### L 100.0100, L503.6550, L503.6030 #### [facility] [address] [place], [address] RDW SD 42.8 fl Normal 35.1-43.9 [facility] Comment on above: Performed By: #### L 100.0100, L503.6550, L503.6030 #### [facility] [address] [place], [address] WBC (Bld) [#/Vol] 8.9 10*3/uL Normal 4.4-11.0 [facility] Comment on above: Performed By: #### L 100.0100, L503.6550, L503.6030 #### [facility] [address] [place], [address] Eosinophil percentageOrdered By: Francois Gutierrez on 02-14-2025 Eosinophils/100 WBC (Bld) 1.6 % 0-5 [facility] Erythrocyte distribution wid th ratioOrdered By: Francois Gutierrez on 02-14-2025 Erythrocyte distribution width (RBC) [Ratio] 13.1 % 11.6-14.6 [facility] Erythrocyte distribution wid th standard deviationOrdered By: Francois Gutierrez on 02-14-2025 Erythrocyte distribution width (RBC) [Ratio] 42.8 fl 35.1-43.9 [facility] Ferritinon 02-14-2025 Ferritin [Mass/Vol] 47 ng/mL Normal 22-378 [facility] Comment on above: Order Comment: ADD O N AMISHA Performed By: #### L 100.0100, L503.6550, L503.6030 #### [facility] [address] [place], [address] Hematocrit Auto (Bld) [Volum e fraction]Ordered By: Francois Gutierrez on 02-14-2025 Hematocrit (Bld) [Volume fraction] 37.1 % 37-47 [facility] Hemoglobin measurementOrdere d By: Francois Gutierrez on 02-14-2025 Hemoglobin (Bld) [Mass/Vol] 11.7 g/dL Low 12.0-15.0 [facility] Immature granulocytes/100 WB C Auto (Bld)Ordered By: Francois Gutierrez on 02-14-2025 Immature granulocytes/100 WBC (Bld) 0.500 % 0.0-0.9 [facility] Comment on above: IG% - Immature Granu locytes (promyelocytes, myelocytes and metamyelocytes) > 1% indicates that a LEFT SHIFT is Present. Iron measurement (mass/mass) Ordered By: Francois Gutierrez on 02-14-2025 Iron (Unsp spec) [Mass/Mass] 66 ug/dL 50-170 [facility] Iron+Iron Binding Capacityon 02-14-2025 Iron [Mass/Vol] 66 ug/dL Normal 50-170 [facility] Comment on above: Order Comment: ADD O N AMISHA AMISHA Performed By: #### L 100.0100, L503.6550, L503.6030 #### [facility] [address] [place], [address] IRON SATURATION 16.7 Normal 13-59 [facility] Comment on above: Order Comment: ADD O N AMISHA AMISHA Performed By: #### L 100.0100, L503.6550, L503.6030 #### [facility] [address] [place], [address] TIBC 397 ug/dL Normal 250-450 [facility] Comment on above: Order Comment: ADD O N AMISHA AMISHA Performed By: #### L 100.0100, L503.6550, L503.6030 #### [facility] [address] [place], [address] UIBC 331 ug/dL Normal 228-428 [facility] Comment on above: Order Comment: ADD O N AMISHA AMISHA Performed By: #### L 100.0100, L503.6550, L503.6030 #### [facility] [address] [place], [address] MCV (mean corpuscular volume ) determinationOrdered By: Francois Gutierrez on 02-14-2025 MCV (RBC) [Entitic vol] 89.4 fL 81-99 [facility] Mean corpuscular hemoglobin (MCH) determinationOrdered By: Francois Gutierrez on 02-14-2025 MCH (RBC) [Entitic mass] 28.2 pg 27.0-32.0 [facility] Mean corpuscular hemoglobin concentration (MCHC) determinationOrdered By: Francois Gutierrez on 02-14-2025 MCHC (RBC) [Mass/Vol] 31.5 g/dL Low 32-36 [facility] Mean platelet volume determi nationOrdered By: Francois Gutierrez on 02-14-2025 Platelet mean volume (Bld) [Entitic vol] 10.4 fL 6.2-12.0 [facility] Monocyte percentageOrdered B y: Francois Gutierrez on 02-14-2025 Monocytes/100 WBC (Bld) 6.5 % 0-10 [facility] Neutrophil percentageOrdered By: Francois Gutierrez on 02-14-2025 Neutrophils/100 WBC (Bld) 60.7 % 47-70 [facility] No Panel InformationOrdered By: Francois Gutierrez on 02-14-2025 Unsaturated Iron Binding Capacity 331 ug/dL 228-428 [facility] Nucleated red blood cell per centageOrdered By: Francois Gutierrez on 02-14-2025 Nucleated RBC/100 WBC (Bld) [Ratio] 0 % 0-5 [facility] Platelet countOrdered By: Cristiane Gutierrez on 02-14-2025 Platelets (Bld) [#/Vol] 282 10*3/uL 150-450 [facility] RBC Auto (Bld) [#/Vol]Ordere d By: Francois Gutierrez on 02-14-2025 RBC (Bld) [#/Vol] 4.15 10*6/uL Low 4.2-5.4 [facility] Serum or plasma ferritin velvet surement (mass/volume)Ordered By: Francois Gutierrez on 02-14-2025 Ferritin [Mass/Vol] 47 ng/mL 22-378 [facility] Serum or plasma iron saturat ion measurement (mass fraction)Ordered By: Francois Gutierrez on 02-14-2025 Iron saturation [Mass fraction] 16.7 % 13-59 [facility] White blood cell (WBC) count Ordered By: Francois Gutierrez on 02-14-2025 WBC (Bld) [#/Vol] 8.9 10*3/uL 4.4-11.0 [facility] Calculated very low density lipoprotein (VLDL) cholesterol measurementOrdered By: Paty Garcia on 02-06-2025 Calculated very low density lipoprotein (VLDL) cholesterol measurement 14 mg/dL 5-40 [facility] Cardiology Visit Reporton Cardiology Visit Report [facility] [address] [place] [address] OFFICE VISIT Date of Service: 02/06/25 MR#: [id number] Acct: [id number] Name: GABE OCAMPO Rep #: [id number] : 1940 Provider: Dr. Paty Garcia MD Age/Sex: 84/F Location[place] [facility] [place] Status: Signed HPI HPI History of Present Illness Details: This pleasant lady has past medical history significant for sick sinus syndrome with complete heart block, status post permanent pacemaker dual-chamber in 2022, mild coronary artery disease diagnosed on coronary angiography in November of last year, hypertension and pulmonary embolism. She has recently moved to the area from [facility] and wishes to establish cardiac care with us. Complains of occasional chest discomfort. Not related to exertion. No radiation to the arm neck or jaw. Some shortness of breath with exertion. Denies orthopnea PND. Occasional ankle edema. Denies any palpitations. No lightheadedness or dizziness. No syncope or presyncope. Intake Vital Signs 02/06/25 09:02 Height 5 ft 2 in Weight: 214 lb BMI 39.1 BP 146/77 H Blood Pressure Location Lt brachial Position Sitting Respiration 18 Pulse 66 Pulse Source Monitor Intake Visit Reasons: Hx of Pacemaker (Robert)/Nathalie Mondragon@ 8:30 Manager Continuous Improvement Required: No Accompanied by: Self Is patient in pain?: No Allergies adhesive tape Allergy (Unknown, Verified 02/06/25 08:53) unknown alendronate sodium (From Fosamax) Allergy (Unknown, Verified 02/06/25 08:53) unknown Dxhtxzk-WOP-MbP Reductase Inhibitor Allergy (Unknown, Verified 02/06/25 08:53) unknown Sulfa (Sulfonamide Antibiotics) Allergy (Unknown, Verified 02/06/25 08:53) unknown egg Adverse Reaction (Verified 02/06/25 08:53) Diarrhea milk Adverse Reaction (Verified 02/06/25 08:53) Diarrhea Medications ???Medication ???Instructions ???Recorded ???Confirmed ???Type apixaban 5 mg tablet (Eliquis) 5 mg PO BID 01/28/25 02/06/25 Hist ory cetirizine 10 mg tablet 10 mg PO QDAY 01/28/25 02/06/25 Hi story cranberry extract 425 mg capsule 425 mg PO QDAY 01/28/25 02/06/25 H istory levothyroxine 137 mcg capsule 137 mcg PO QDAY 01/28/25 02/06/25 History ropinirole 1 mg tablet 1 mg PO QDAY 01/28/25 02/06/25 His tory sertraline 100 mg tablet 100 mg PO QDAY 01/28/25 02/06/25 H istory hdwnb-m-nliricahfgqd e 450 unit PO QDAY 02/06/25 02/06/25 History metoprolol tartrate 25 mg tablet 25 mg PO BID 02/06/25 02/06/25 His tory Have you fallen in the past year?: Yes (woke up in chair, stood up and fell) PFSH Medical History (Updated 02/06/25 @ 09:[address] Paty Garcia MD) History of left heart catheterization Pacemaker Sleep apnea Restless leg syndrome Depression Pulmonary embolism Hyperlipidemia Hypothyroidism Surgical History (Updated 02/06/25 @ 09:[address] Paty Garcia MD) History of left knee replacement H/O hand surgery Hx of hysterectomy, total History of foot surgery Family History Brother CVA (cerebral vascular accident) Myocardial infarction Diabetes Sister Diabetes Father , at age of 50 Celiac disease/sprue Social History Smoking Status: Never smoker substance use type: does not use ROS Const Const: Positive for fatigue; Negative for weakness Eyes Eyes: Negative for change in vision ENT ENT: Positive for balance problems; Negative for dizziness Cardio Chest Pain: Yes Frequency: daily Character: dull Location: left chest Duration: minutes Palpitations: No Edema: None Resp Respiratory: Positive for SOB with activity; Negative for SOB at rest or SOB orthopnea SOB lying down GI GI: Negative nausea or heartburn Musc Musc: Positive for balance problems Neuro Neuro: Negative for dizziness, lightheadedness, near syncope, syncope or weakness Endo Endo: Positive for fatigue Cardiology Exam Const Appearance: comfortable and no acute distress Nutritional Appearance: well nourished Neck Neck: no JVD Carotids: Negative bruit Chest Auscultation: Bilateral: Clear to Auscultation Cardio Rate: regular rate Rhythm: regular rhythm Heart sounds: S1 normal and S2 normal Neuro General: patient alert, patient awake and patient oriented x3 Extremities Lower Extremity Edema: None: Bilateral Supplemental Info Supplemental Information Labs: HDL Cholesterol, (40-) 59 mg/dL Cholesterol, (<=200) 265 mg/dL H Triglycerides, (-199) 103 mg/dL Past Visits: Cardiology Visit Today Assessment and Plan Assessment and Plan (1) History of complete heart block: Status: Chronic Plan: Dual chamber permanent pacemaker installed in 2022. Enroll at (more content not included)... Normal [facility] LDL calc ser/plasOrdered By: Paty Garcia on 02-06-2025 Cholesterol in LDL [Mass/Vol] 211 mg/dL [facility] Comment on above: Hcczfnvbvh=646-623 m g/dL & Higher Egny=223 mg/dL or greaterFriedwald Equation for LDL-C Lipid Profileon 02-06-2025 CHOL:HDL 4.69 Normal [facility] Comment on above: Performed By: #### L 500.4100 #### [facility] [address] [place], [address] ([phone]) Cholesterol [Mass/Vol] 285 mg/dL High <=200 [facility] Comment on above: Result Comment: Chol esterol level, Desirable <200 mg/dL Borderline high cholesterol 200-239 mg/dL High cholesterol >=240 mg/dL Recommendations of the NCEP Adult Treatment Panel for the following risk-cutoff thresholds for the [place] population. Performed By: #### L 500.4100 #### [facility] [address] [place], [address] (104) Cholesterol in HDL [Mass/Vol] 61 mg/dL Normal [facility] Comment on above: Result Comment: Siobhan onal Cholesterol Education Program (NCEP) guidelines: <40 mg/dL: Low HDL-cholesterol (major risk factor for CHD) >= 60 mg/dL: High HDL-cholesterol (negative risk factor for CHD) HDL-cholesterol is affected by a number of factors, e.g. smoking, exercise, hormones, sex and age. Performed By: #### L 500.4100 #### [facility] [address] [place], [address] Cholesterol in LDL [Mass/Vol] 211 mg/dL Normal [facility] Comment on above: Result Comment: Bord zyzoum=612-755 mg/dL Higher Lxfq=534 mg/dL or greater Friedwald Equation for LDL-C Performed By: #### L 500.4100 #### [facility] [address] [place], [address] Cholesterol in VLDL [Mass/Vol] 14 mg/dL Normal 5-40 [facility] Comment on above: Performed By: #### L 500.4100 #### [facility] [address] [place], [address] Triglyceride [Mass/Vol] 68 mg/dL Normal [facility] Comment on above: Result Comment: The drugs N-Acetylcysteine and Metamizole may falsely depress this assay. Normal range: <150 mg/dL Borderline High: 150-199 mg/dL High: 200-499 mg/dL Very High: >500 mg/dL Performed By: #### L 500.4100 #### [facility] [address] [place], [place], [address] Pacemaker Checkon 02-06-2025 Pacemaker Check [facility] [address] [place], [place] [address] Pacemaker Check Date of Service: 02/06/25 1345 MR#: [id number] Acct: [id number] Name: GABE OCAMPO JO Rep #: [id number] : 1940 From: Denise Koehler Age/Sex: 84/F Location: [facility] [place] Status: Signed Billing Codes PM Device Codes: 02469 PM Dev Prog Eval, Dual Assessment and Plan Assessment and Plan (1) History of permanent cardiac pacemaker placement: Status: Chronic (2) History of complete heart block: Status: Chronic 02/06/25 1352 Date Denise Méndez Signature: Date (if applicable) CC: Normal [facility] Screening total cholesterol/ high density lipoprotein (HDL) cholesterol ratioOrdered By: Paty Garcia on 02-06-2025 Cholesterol.total/Choles terol in HDL [Mass ratio] 4.69 {ratio} [facility] Serum or plasma cholesterol in HDL measurement (mass/volume)Ordered By: Paty Garcia on 02-06-2025 Cholesterol in HDL [Mass/Vol] 61 mg/dL >40 [facility] Comment on above: National Cholesterol Education Program (NCEP) guidelines:<40 mg/dL: Low HDL-cholesterol (major risk factor for CHD)>= 60 mg/dL: High HDL-cholesterol (negative risk factor for CHD)HDL-cholesterol is affected by a number of factors, e.g. smoking, exercise, hormones, sex and age. Serum or plasma cholesterol measurement (mass/volume)Ordered By: Paty Garcia on 02-06-2025 Cholesterol [Mass/Vol] 285 mg/dL High <201 [facility] Comment on above: Cholesterol level, D esirable <200 mg/dLBorderline high cholesterol 200-239 mg/dLHigh cholesterol >=240 mg/dLRecommendations of the NCEP Adult Treatment Panel for the following risk-cutoff thresholds for the [place] population. Triglycerides measurementOrd ered By: Paty Garcia on 02-06-2025 Triglyceride [Mass/Vol] 68 mg/dL <199 [facility] Comment on above: The drugs N-Acetylcy steine and Metamizole may falsely depress this assay. Normal range: <150 mg/dLBorderline High: 150-199 mg/dLHigh: 200-499 mg/dLVery High: >500 mg/dL Inital Evaluation (1) - PTon 01-22-2025 Inital Evaluation (1) - PT [facility] Physical Therapy [facility] [address] [place] [address] / REHABILITATION SERVICES INITIAL EVALUATION MR#: [id number] Acct: [id number] Name: GABE OCAMPO Rep #: [id number] : 1940 84 From: Skinny Boggs DPT Referring Dr.: Dr. Buster Jones MD Status: REG RCR [facility] Patient's Visit Information Visit Information Visit Information: GABE OCAMPO is a 84 year old F referred to Physical Therapy by Dr. Buster Jones MD with a diagnosis of R knee pain. Date of Evaluation: 01/08/25 Physical Therapist: Skinny Boggs DPT Visit Plan Frequency: 2x /Week Duration: 6 Weeks Plan: 1) RLE strengthening, start with OKC then progress to CKC as tolerated. 2) May use US as needed for pain control. Subjective Subjective: Pt. is here today for her initial evaluation with diagnosis of R knee pain. Pt. 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 Pt. was doing well, but started to have pain in her R knee with doing classes. Pt. reports no N/T in either LE. Pt. reports not giving out on her. Pt. reports doing exercises, but not sure which ones to do. She has had hold off exercises due to her knee pain. Pt. reports minimal pain at rest. Pt. is sleeping well without issues. She would like to be able get back to walking without issues and getting back to all of her classes without increase in symptoms. Pain R knee: Pain Intensity (Out of 10): 3 Pain Intensity Range: 1 and 5 Objective Objective: POSTURE: Pt. has normal posture in stance. Pt. has slight increase in knee valgus positioning. Pt. has slight increased wt. shift to L side in stance. PALPATION: Pt has mild pain with palpation of medial joint line. NEURO: normal throughout. ROM: R knee: 0-4-110deg. Pt. has tightness in B HS and quads MMT: RLE 4+/5 throughout; L knee: 5-/5 throughout GAIT: Pt. ambulates with SPC with okay tolerance. Pt. has increased lateral sway, but not marked [place] noted. STAIRS: step to pattern noted loading LLE only. Uses of 2 HR to complete. Balance/Special Test Scores Lower Extremity Functional Score: 34 Goals Goal 1:: LTG: Pt. to have increased R knee ROM to full without increase in symptoms allowing for increased tolerance to ADLs. Goal Time Frame: 4-6 Weeks Goal 2:: LTG: Pt. to have increased RLE strength to 5/5 throughout to reduce stress to knee with all functional mobility. Goal Time Frame: 4-6 Weeks Goal 3:: LTG: Pt. to complete all gym classes without increase in R knee pain. Goal Time Frame: 4-6 Weeks Goal 4:: LTG: Pt. to be able to negotiate 1 flight of stairs with 1 HR with reciprocal pattern. Goal Time Frame: 4-6 Weeks Rehabilitation Potential Physical Therapy Diagnosis: Pt. has signs and symptoms consistent with R knee pain, due to OA. Pt. has marked hypomobility, weakness and would benefit from PT to address the above limitations. Rehabilitation Potential: Good Anticipated Interventions Patient/Client Instruction: Educate patient on: Condition, Plan of Care, Risk Factors and Benefits of Fitness Program For the Purpose of:: To foster healthy habits, To improve decision making, To facilitate caregiver knowledge, To improve self management, To prevent re-injury and To improve ability to perform tasks related to life management Therapeutic Exercise to Include: Strength training, Power training, Balance training, Flexibilty training, Passive ROM and Active ROM For the Purpose of:: To decrease pain, To decrease swelling/inflammatio n, To increase ROM, To improve nutrient delivery to tissue, To increase oxygenation perfusion, To improve muscle performance and motor function, To improve gait and locomotor functions, To improve health of tissue, To decrease soft tissue restriction and To increase flexibility/ROM Ultrasound (thermal/non thermal): Yes For the Purpose of:: To decrease pain, To decrease swelling/inflammatio n, To increase ROM, To improve nutrient delivery to tissue and To increase oxygenation perfusion Text: Thank you for the opportunity to evaluate your patient. For Medicare and Medicare HMO plans, please review the plan of care and approve it. It will need to be FAXED BACK to us at [phone] for Medicare purposes. For Medicare only, by signing this I certify the plan of care. Please let me know if there are questions or concerns regarding this plan of care. Physician Signature: D ate: 01/22/25 1030 CC: Dr. Buster Jones MD CLS Signed Normal [facility] Knee 3 Viewson 12-31-2024 Knee 3 Views [facility] Imaging Services [address] [place], [place] [id number] Knee 3 Views MR#: [id number] Acct: [id number] Name: GABE OCAMPO JO Rep #: [id number] : 1940 F 84 From: Owen Hoff MD PCP: Dr. Buster Jones MD Status: REG [facility] Study: Knee 3 Views Date of Exam: 12/31/24 Exam# [id number] Ordering Dr: Buster Jones MD PROCEDURE: KNEE 3 VIEWS 12/31/2024 REASON FOR EXAM: LEG CRAMPS TECHNIQUE: Procedure Code: RADPAT Modality: DX Procedure: KNEE 3 VIEWS Laterality: FINDINGS: No evidence acute fracture or dislocation. Moderate degenerative changes of the knee. No knee joint effusion. RAD/Knee 3 Views IMPRESSION: No acute osseous abnormalities. Osteoarthrosis. Reading Location: [address] CC: Dr. Buster Jones MD Counseling Case Manager: Signed Normal [facility] Abd Inc Decub and/or Erecton 11-29-2024 Abd Inc Decub and/or Erect [facility] Imaging Services [address] [place] [address] Abd Inc Decub and/or Erect MR#: [id number] Acct: [id number] Name: GABE OCAMPO Rep #: [id number] : 1940 F 84 From: Mario Alberto [place] PCP: Dr. Buster Jones MD Status: REG CLI Study: Abd Inc Decub and/or Erect Date of Exam: 11/29 Exam# [id number] Ordering Dr: Buster Jones MD PROCEDURE: ABD INC DECUB AND/OR ERECT 11/29/2024 REASON FOR EXAM: CHRONIC DIARRHEA TECHNIQUE: Three-view supine and upright abdomen COMPARISON: None. RAD/Abd Inc Decub and/or Erect IMPRESSION: No evidence of pneumoperitoneum. Right hemidiaphragm elevation is noted. A partially calcified aorta is seen. Minimal left and mild right sacroiliac joint degenerative changes are seen. Filg-ss-xvgtmuam degenerative changes are seen throughout the spine. The bowel-gas pattern is unremarkable. No excess stool burden is seen. No mass or mass effect is noted. Reading Location: [place] [address] CC: Dr. Buster Jones MD Counseling Case Manager: Signed Normal [facility] Absolute lymphocyte countOrd ered By: Buster Jones on 11-26-2024 Lymphocytes Auto (Unsp spec) [#/Vol] 2.75 10*3/uL 0.83-4.51 [facility] Absolute neutrophil countOrd ered By: Buster Jones on 11-26-2024 Neutrophils (Bld) [#/Vol] 4.5 10*3/uL 2.0-7.7 [facility] Anion gap in Serum or Plasma Ordered By: Buster Jones on 11-26-2024 Anion gap [Moles/Vol] 13 mmol/L 5-15 [facility] Automated lymphocyte count a s percentage of total leukocytesOrdered By: Buster Jones on 11-26-2024 Lymphocytes/100 WBC Auto (Unsp spec) 34.5 % 19-41 [facility] BUN/creatinine ratioOrdered By: Buster Jones on 11-26-2024 Urea nitrogen/Creatinine [Mass ratio] 16.3 mg/mg 10-20 [facility] Basophil percentageOrdered B y: Buster Jones on 11-26-2024 Basophils/100 WBC (Bld) 1.1 % High 0-1 [facility] Bilirubin, totalOrdered By: Buster Robert on 11-26-2024 Bilirubin [Mass/Vol] 0.46 mg/dL 0.00-1.[address] [facility] CBC W/Diff, Automatedon Absolute Lymph 2.75 X10 3/uL Normal 0.83-4.51 [facility] Comment on above: Performed By: #### L 3890.6301, L506.1001, L501.9520, L500.4050, L100.0100, L500.4100 ####[facility] [address] [place], [address] Absolute Neut 4.5 X10 3/uL Normal 2.0-7.7 [facility] Comment on above: Performed By: #### L 3890.6301, L506.1001, L501.9520, L500.4050, L100.0100, L500.4100 ####[facility] [address] [place], [address] Basophils/100 WBC (Bld) 1.1 % High 0-1 [facility] Comment on above: Performed By: #### L 3890.6301, L506.1001, L501.9520, L500.4050, L100.0100, L500.4100 ####[facility] [address] [place], [address] Eosinophils/100 WBC (Bld) 1.1 % Normal 0-5 [facility] Comment on above: Performed By: #### L 3890.6301, L506.1001, L501.9520, L500.4050, L100.0100, L500.4100 ####[facility] [address] [place], [address] Erythrocyte distribution width (RBC) [Ratio] 13.2 % Normal 11.6-14.6 [facility] Comment on above: Performed By: #### L 3890.6301, L506.1001, L501.9520, L500.4050, L100.0100, L500.4100 ####[facility] [address] [place], [address] Hematocrit (Bld) [Volume fraction] 38.4 % Normal 37-47 [facility] Comment on above: Performed By: #### L 3890.6301, L506.1001, L501.9520, L500.4050, L100.0100, L500.4100 ####[facility] [address] [place], [address] Hemoglobin (Bld) [Mass/Vol] 12.0 g/dL Normal 12.0-15.0 [facility] Comment on above: Performed By: #### L 3890.6301, L506.1001, L501.9520, L500.4050, L100.0100, L500.4100 ####[facility] [address] [place], [address] IG% 0.400 Normal 0.0-0.9 [facility] Comment on above: Result Comment: IG% - Immature Granulocytes (promyelocytes, myelocytes and metamyelocytes) > 1% indicates that a LEFT SHIFT is Present. Performed By: #### L 3890.6301, L506.1001, L501.9520, L500.4050, L100.0100, L500.4100 ####[facility] [address] [place], [address] Lymphocytes/100 WBC (Bld) 34.5 % Normal 19-41 [facility] Comment on above: Performed By: #### L 3890.6301, L506.1001, L501.9520, L500.4050, L100.0100, L500.4100 ####[facility] [address] [place], [address] MCH (RBC) [Entitic mass] 28.5 pg Normal 27.0-32.0 [facility] Comment on above: Performed By: #### L 3890.6301, L506.1001, L501.9520, L500.4050, L100.0100, L500.4100 ####[facility] [address] [place], [address] MCHC (RBC) [Mass/Vol] 31.3 g/dL Low 32-36 [facility] Comment on above: Performed By: #### L 3890.6301, L506.1001, L501.9520, L500.4050, L100.0100, L500.4100 ####[facility] [address] [place], [address] MCV (RBC) [Entitic vol] 91.2 fL Normal 81-99 [facility] Comment on above: Performed By: #### L 3890.6301, L506.1001, L501.9520, L500.4050, L100.0100, L500.4100 ####[facility] [address] [place], [address] Monocytes/100 WBC (Bld) 6.0 % Normal 0-10 [facility] Comment on above: Performed By: #### L 3890.6301, L506.1001, L501.9520, L500.4050, L100.0100, L500.4100 ####[facility] [address] [place], [address] Neutrophils/100 WBC (Bld) 56.9 % Normal 47-70 [facility] Comment on above: Performed By: #### L 3890.6301, L506.1001, L501.9520, L500.4050, L100.0100, L500.4100 ####[facility] [address] [place], [address] Nucleated RBC (Bld) [#/Vol] 0 10*3/uL Normal 0-5 [facility] Comment on above: Performed By: #### L 3890.6301, L506.1001, L501.9520, L500.4050, L100.0100, L500.4100 ####[facility] [address] [place], [address] Platelet mean volume (Bld) [Entitic vol] 11.1 fL Normal 6.2-12.0 [facility] Comment on above: Performed By: #### L 3890.6301, L506.1001, L501.9520, L500.4050, L100.0100, L500.4100 ####[facility] [address] [place], [address] Platelets (Bld) [#/Vol] 302 10*3/uL Normal 150-450 [facility] Comment on above: Performed By: #### L 3890.6301, L506.1001, L501.9520, L500.4050, L100.0100, L500.4100 ####[facility] [address] [place], [address] RBC (Bld) [#/Vol] 4.21 10*6/uL Normal 4.2-5.4 [facility] Comment on above: Performed By: #### L 3890.6301, L506.1001, L501.9520, L500.4050, L100.0100, L500.4100 ####[facility] [address] [place], [address] RDW SD 44.0 fl High 35.1-43.9 [facility] Comment on above: Performed By: #### L 3890.6301, L506.1001, L501.9520, L500.4050, L100.0100, L500.4100 ####[facility] [address] [place], [address] WBC (Bld) [#/Vol] 8.0 10*3/uL Normal 4.4-11.0 [facility] Comment on above: Performed By: #### L 3890.6301, L506.1001, L501.9520, L500.4050, L100.0100, L500.4100 ####[facility] [address] [place], [address] Calculated very low density lipoprotein (VLDL) cholesterol measurementOrdered By: Buster Jones on 11-26-2024 Calculated very low density lipoprotein (VLDL) cholesterol measurement 21 mg/dL 5-40 [facility] Carbon dioxide, total [Moles /volume] in Central venous bloodOrdered By: Buster Jones on 11-26-2024 CO2 [Moles/Vol] 19.6 mmol/L Low 21.0-32.0 [facility] Chloride assayOrdered By: Tee Jones on 11-26-2024 Chloride [Moles/Vol] 105 mmol/L 98-[address] [facility] Comprehensive Metabolic Prof ilon 11-26-2024 Albumin [Mass/Vol] 3.8 g/dL Normal 3.4-4.8 [facility] Comment on above: Performed By: #### L 3890.6301, L506.1001, L501.9520, L500.4050, L100.0100, L500.4100 ####[facility] [address], [address] Albumin/Globulin [Mass ratio] 1.2 {ratio} Normal 0.9-2.4 [facility] Comment on above: Performed By: #### L 3890.6301, L506.1001, L501.9520, L500.4050, L100.0100, L500.4100 ####[facility] [address], [address] ALK PHOS 105 U/L High 35-104 [facility] Comment on above: Performed By: #### L 3890.6301, L506.1001, L501.9520, L500.4050, L100.0100, L500.4100 ####[facility] [address] [place], [address] ALT [Catalytic activity/Vol] 17 U/L Normal <=34 [facility] Comment on above: Performed By: #### L 3890.6301, L506.1001, L501.9520, L500.4050, L100.0100, L500.4100 ####[facility] [address] [place], [address] AST [Catalytic activity/Vol] 27 U/L Normal <=31 [facility] Comment on above: Performed By: #### L 3890.6301, L506.1001, L501.9520, L500.4050, L100.0100, L500.4100 ####[facility] [address] [place], [address] Bilirubin [Mass/Vol] 0.46 mg/dL Normal 0.00-1.[address] [facility] Comment on above: Performed By: #### L 3890.6301, L506.1001, L501.9520, L500.4050, L100.0100, L500.4100 ####[facility] [address] [place], [address] BUN/CRE 16.3 RATIO Normal 10-20 [facility] Comment on above: Performed By: #### L 3890.6301, L506.1001, L501.9520, L500.4050, L100.0100, L500.4100 ####[facility] [address] [place], [address] Calcium [Mass/Vol] 9.5 mg/dL Normal 7.6-11.0 [facility] Comment on above: Performed By: #### L 3890.6301, L506.1001, L501.9520, L500.4050, L100.0100, L500.4100 ####[facility] [address] [place], [address] Chloride [Moles/Vol] 105 mmol/L Normal 98-[address] [facility] Comment on above: Performed By: #### L 3890.6301, L506.1001, L501.9520, L500.4050, L100.0100, L500.4100 ####[facility] [address] [place], [address] CO2 [Moles/Vol] 19.6 mmol/L Low 21.0-32.0 [facility] Comment on above: Performed By: #### L 3890.6301, L506.1001, L501.9520, L500.4050, L100.0100, L500.4100 ####[facility] [address] [place], [address] Creatinine [Mass/Vol] 0.73 mg/dL Normal 0.70-1.20 [facility] Comment on above: Performed By: #### L 3890.6301, L506.1001, L501.9520, L500.4050, L100.0100, L500.4100 ####[facility] [address] [place], [address] GAP 13 Normal 5-15 [facility] Comment on above: Performed By: #### L 3890.6301, L506.1001, L501.9520, L500.4050, L100.0100, L500.4100 ####[facility] [address] [place], [address] GFR/1.73 sq M.predicted among non-blacks MDRD (S/P/Bld) [Vol rate/Area] 82 mL/min/{1.73_m2} Normal >60 [facility] Comment on above: Result Comment: mL/m in/1.73m2 CKD-EPI Creatinine Equation (2020) Performed By: #### L 3890.6301, L506.1001, L501.9520, L500.4050, L100.0100, L500.4100 ####[facility] [address] [place], [address] Globulin (S) [Mass/Vol] 3.2 g/dL Normal 2.2-4.2 [facility] Comment on above: Performed By: #### L 3890.6301, L506.1001, L501.9520, L500.4050, L100.0100, L500.4100 ####[facility] [address] [place], [address] Glucose [Mass/Vol] 92 mg/dL Normal 70-99 [facility] Comment on above: Performed By: #### L 3890.6301, L506.1001, L501.9520, L500.4050, L100.0100, L500.4100 ####[facility] [address] [place], [address] Potassium [Moles/Vol] 4.4 mmol/L Normal 3.3-5.1 [facility] Comment on above: Performed By: #### L 3890.6301, L506.1001, L501.9520, L500.4050, L100.0100, L500.4100 ####[facility] [address] [place], [address] Sodium [Moles/Vol] 138 mmol/L Normal 133-145 [facility] Comment on above: Performed By: #### L 3890.6301, L506.1001, L501.9520, L500.4050, L100.0100, L500.4100 ####[facility] [address] [place], [address] T PROT 7.0 g/dL Normal 5.9-8.4 [facility] Comment on above: Performed By: #### L 3890.6301, L506.1001, L501.9520, L500.4050, L100.0100, L500.4100 ####[facility] [address] [place], [place], [address] Urea nitrogen [Mass/Vol] 12 mg/dL Normal 4-19 [facility] Comment on above: Performed By: #### L 3890.6301, L506.1001, L501.9520, L500.4050, L100.0100, L500.4100 ####[facility] [address] [place], [place], [address] Eosinophil percentageOrdered By: Buster Jones on 11-26-2024 Eosinophils/100 WBC (Bld) 1.1 % 0-5 [facility] Erythrocyte distribution wid th ratioOrdered By: Buster Jones on 11-26-2024 Erythrocyte distribution width (RBC) [Ratio] 13.2 % 11.6-14.6 [facility] Erythrocyte distribution wid th standard deviationOrdered By: Buster Jones 11-26-2024 Erythrocyte distribution width (RBC) [Ratio] 44.0 fl High 35.1-43.9 [facility] Glomerular filtration rate ( GFR) estimation/1.73 sq m using serum, plasma, or whole bOrdered By: Buster Jones on 11-26-2024 GFR/1.73 sq M.predicted among non-blacks MDRD (S/P/Bld) [Vol rate/Area] 82 mL/min/{1.73_m2} >60 [facility] Comment on above: mL/min/1.73m2 CKD-EP I Creatinine Equation (2020) Hematocrit Auto (Bld) [Volum e fraction]Ordered By: Buster Jones on 11-26-2024 Hematocrit (Bld) [Volume fraction] 38.4 % 37-47 [facility] Hemoglobin measurementOrdere d By: Buster Jones on 11-26-2024 Hemoglobin (Bld) [Mass/Vol] 12.0 g/dL 12.0-15.0 [facility] Hepatitis C Antibodyon 11-26 Hepatitis C Ab Non-Reactive Normal Nonreactive [facility] Comment on above: Result Comment: Reac tive: Presumptive evidence of antibodies to HCV. Follow CDC recommendations for supplemental testing. Non-Reactive: Antibodies to HCV were not detected; does not exclude the possibility of exposure to HCV Reactive Results are presumptive evidence of antibodies to HCV. Follow CDC recommendations for supplemental testing. Order confirmation testing: HCV Quant by PCR testing - HCVPCR #[id number] Non Reactive: < 0.8 Equivocal: >/= 0.8 to < 1.0 Reactive: >/= 1.0 The [facility] requires that a reactive/equivocal HCV antibody result be sent out for confirmation. HCV Quant by PCR testing. Performed By: #### L 3890.6301, L506.1001, L501.9520, L500.4050, L100.0100, L500.4100 ####[facility] [address] [place], [address] Immature granulocytes/100 WB C Auto (Bld)Ordered By: Buster Jones on 11-26-2024 Immature granulocytes/100 WBC (Bld) 0.400 % 0.0-0.9 [facility] Comment on above: IG% - Immature Granu locytes (promyelocytes, myelocytes and metamyelocytes) > 1% indicates that a LEFT SHIFT is Present. LDL calc ser/plasOrdered By: Buster Jones on 11-26-2024 Cholesterol in LDL [Mass/Vol] 186 mg/dL [facility] Comment on above: Zhfqmfvllg=405-124 m g/dL & Higher Yred=539 mg/dL or greaterFriedwald Equation for LDL-C Laboratory - Chemistry and C hemistry - challengeOrdered By: Buster Jones on 11-26-2024 AST [Catalytic activity/Vol] 27 U/L <32 [facility] Lipid Profileon 11-26-2024 CHOL:HDL 4.52 Normal [facility] Comment on above: Performed By: #### L 3890.6301, L506.1001, L501.9520, L500.4050, L100.0100, L500.4100 ####[facility] [address] [place], [address] Cholesterol [Mass/Vol] 265 mg/dL High <=200 [facility] Comment on above: Result Comment: Chol esterol level, Desirable <200 mg/dL Borderline high cholesterol 200-239 mg/dL High cholesterol >=240 mg/dL Recommendations of the NCEP Adult Treatment Panel for the following risk-cutoff thresholds for the [place] population. Performed By: #### L 3890.6301, L506.1001, L501.9520, L500.4050, L100.0100, L500.4100 ####[facility] [address] [place], [address] Cholesterol in HDL [Mass/Vol] 59 mg/dL Normal [facility] Comment on above: Result Comment: Siobhan onal Cholesterol Education Program (NCEP) guidelines: <40 mg/dL: Low HDL-cholesterol (major risk factor for CHD) >= 60 mg/dL: High HDL-cholesterol (negative risk factor for CHD) HDL-cholesterol is affected by a number of factors, e.g. smoking, exercise, hormones, sex and age. Performed By: #### L 3890.6301, L506.1001, L501.9520, L500.4050, L100.0100, L500.4100 ####[facility] [address] [place], [address] Cholesterol in LDL [Mass/Vol] 186 mg/dL Normal [facility] Comment on above: Result Comment: Bord mpknew=210-063 mg/dL Higher Ewbn=104 mg/dL or greater Friedwald Equation for LDL-C Performed By: #### L 3890.6301, L506.1001, L501.9520, L500.4050, L100.0100, L500.4100 ####[facility] [address] [place], [address] Cholesterol in VLDL [Mass/Vol] 21 mg/dL Normal 5-40 [facility] Comment on above: Performed By: #### L 3890.6301, L506.1001, L501.9520, L500.4050, L100.0100, L500.4100 ####[facility] [address] [facility] [place], [place], [id number] Triglyceride [Mass/Vol] 103 mg/dL Normal [facility] Comment on above: Result Comment: The drugs N-Acetylcysteine and Metamizole may falsely depress this assay. Normal range: <150 mg/dL Borderline High: 150-199 mg/dL High: 200-499 mg/dL Very High: >500 mg/dL Performed By: #### L 3890.6301, L506.1001, L501.9520, L500.4050, L100.0100, L500.4100 ####[facility] [address] [facility] [place], [place], [address] MCV (mean corpuscular volume ) determinationOrdered By: Buster Jones on 11-26-2024 MCV (RBC) [Entitic vol] 91.2 fL 81-99 [facility] Mean corpuscular hemoglobin (MCH) determinationOrdered By: Buster Jones 11-26-2024 MCH (RBC) [Entitic mass] 28.5 pg 27.0-32.0 [facility] Mean corpuscular hemoglobin concentration (MCHC) determinationOrdered By: Buster Jones 11-26-2024 MCHC (RBC) [Mass/Vol] 31.3 g/dL Low 32-36 [facility] Mean platelet volume determi nationOrdered By: Buster Jones on 11-26-2024 Platelet mean volume (Bld) [Entitic vol] 11.1 fL 6.2-12.0 [facility] Monocyte percentageOrdered B y: Buster Jones on 11-26-2024 Monocytes/100 WBC (Bld) 6.0 % 0-10 [facility] Neutrophil percentageOrdered By: Buster Jones on 11-26-2024 Neutrophils/100 WBC (Bld) 56.9 % 47-70 [facility] Nucleated red blood cell per centageOrdered By: Buster Jones 11-26-2024 Nucleated RBC/100 WBC (Bld) [Ratio] 0 % 0-5 [facility] Platelet countOrdered By: Tee Jones on 11-26-2024 Platelets (Bld) [#/Vol] 302 10*3/uL 150-450 [facility] Potassium measurement (mass/ volume)Ordered By: Buster Jones on 11-26-2024 Potassium (Unsp spec) [Mass/Vol] 4.4 mmol/L 3.3-5.1 [facility] RBC Auto (Bld) [#/Vol]Ordere d By: Buster Jones on 11-26-2024 RBC (Bld) [#/Vol] 4.21 10*6/uL 4.2-5.4 [facility] Screening total cholesterol/ high density lipoprotein (HDL) cholesterol ratioOrdered By: Buster Jones on 11-26-2024 Cholesterol.total/Choles terol in HDL [Mass ratio] 4.52 {ratio} [facility] Serum creatinine measurement (mass/volume)Ordered By: Buster Jones on 11-26-2024 Creatinine [Mass/Vol] 0.73 mg/dL 0.70-1.20 [facility] Serum globulin measurementOr dered By: Buster Jones 11-26-2024 Globulin (S) [Mass/Vol] 3.2 g/dL 2.2-4.2 [facility] Serum glucose measurement (m ass/volume)Ordered By: Buster Jones on 11-26-2024 Glucose [Mass/Vol] 92 mg/dL 70-99 [facility] Serum or plasma alanine nelson otransferase (ALT) measurementOrdered By: Buster Jones on 11-26-2024 ALT [Catalytic activity/Vol] 17 U/L <35 [facility] Serum or plasma albumin leroy urement (mass/volume)Ordered By: Buster Jones on 11-26-2024 Albumin [Mass/Vol] 3.8 g/dL 3.4-4.8 [facility] Serum or plasma albumin/glob ulin mass ratioOrdered By: Buster Jones 11-26-2024 Albumin/Globulin [Mass ratio] 1.2 {ratio} 0.9-2.4 [facility] Serum or plasma alkaline dominique sphatase measurementOrdered By: Buster Jones on 11-26-2024 ALP [Catalytic activity/Vol] 105 U/L High 35-104 [facility] Serum or plasma calcium leroy urement (mass/volume)Ordered By: Buster Jones on 11-26-2024 Calcium [Mass/Vol] 9.5 mg/dL 7.6-11.0 [facility] Serum or plasma cholesterol in HDL measurement (mass/volume)Ordered By: Buster Jones on 11-26-2024 Cholesterol in HDL [Mass/Vol] 59 mg/dL >40 [facility] Comment on above: National Cholesterol Education Program (NCEP) guidelines:<40 mg/dL: Low HDL-cholesterol (major risk factor for CHD)>= 60 mg/dL: High HDL-cholesterol (negative risk factor for CHD)HDL-cholesterol is affected by a number of factors, e.g. smoking, exercise, hormones, sex and age. Serum or plasma cholesterol measurement (mass/volume)Ordered By: Buster Jones on 11-26-2024 Cholesterol [Mass/Vol] 265 mg/dL High <201 [facility] Comment on above: Cholesterol level, D esirable <200 mg/dLBorderline high cholesterol 200-239 mg/dLHigh cholesterol >=240 mg/dLRecommendations of the NCEP Adult Treatment Panel for the following risk-cutoff thresholds for the [place] population. Serum or plasma urea nitroge n measurement (mass/volume)Ordered By: Buster Jones on 11-26-2024 Urea nitrogen [Mass/Vol] 12 mg/dL 4-19 [facility] Sodium levelOrdered By: Buster Jones 11-26-2024 Sodium [Moles/Vol] 138 mmol/L 133-145 [facility] TSH DL <= 0.005 mIU/L QnOrde red By: Buster Jones on 11-26-2024 TSH Qn 3.070 uIU/mL 0.300-4.200 [facility] Thyroid Stim Hormone (TSH)on 11-26-2024 TSH 3.070 uIU/mL Normal 0.300-4.200 [facility] Comment on above: Performed By: #### L 3890.6301, L506.1001, L501.9520, L500.4050, L100.0100, L500.4100 ####[facility] [id number] [place], [address] Total proteinOrdered By: Buster Jones on 11-26-2024 Protein [Mass/Vol] 7.0 g/dL 5.9-8.4 [facility] Triglycerides measurementOrd ered By: Buster Jones on 11-26-2024 Triglyceride [Mass/Vol] 103 mg/dL <199 [facility] Comment on above: The drugs N-Acetylcy steine and Metamizole may falsely depress this assay. Normal range: <150 mg/dLBorderline High: 150-199 mg/dLHigh: 200-499 mg/dLVery High: >500 mg/dL Vitamin D,25 Hydroxyon 11-26 Vitamin D 25-OH 25.6 ng/mL Low 30-100 [facility] Comment on above: Result Comment: Shanita min D Status Deficiency: <20 ng/mL (50nmol/L) Insufficiency: 20-30 ng/mL (50-75 nmol/L) Sufficiency: 30-100 ng/mL (75-250 nmol/L) Toxicity: >100 ng/mL (>250 nmol/L) Performed By: #### L 3890.6301, L506.1001, L501.9520, L500.4050, L100.0100, L500.4100 ####[facility] [id number] [place], [address] White blood cell (WBC) count Ordered By: Buster Jones on 11-26-2024 WBC (Bld) [#/Vol] 8.0 10*3/uL 4.4-11.0 [facility] Vital Signs Date Time Vital Sign Value Performing Clinician Faci lity 02-06-2025 09:020400 Body height 157.[address] Buster Jones MD Work Phone: [facility] 02-06-2025 09:020400 Body mass index (BMI) [Ratio] 39.1 kg/m2 Dr. Buster Jones MD Work Phone: [facility] 02-06-2025 09:02-0400 Body weight 97.[address] Buster Jones MD Work Phone: [facility] 02-06-2025 09:02-0400 Diastolic blood pressure 77 mm[Hg] Dr. Buster Jones MD Work Phone: [facility] 02-06-2025 09:02-0400 Heart rate 66 /min Dr. Buster Jones MD Work Phone: [facility] 02-06-2025 09:02-0400 Respiratory rate 18 /min Dr. Buster Jones MD Work Phone: [facility] 02-06-2025 09:02-0400 Systolic blood pressure 146 mm[Hg] Dr. Buster Jones MD Work Phone: [facility] Encounters Encounter Date Encounter Type Care Provider Facility Start: 04-02-2025 ambulatory [facility] Facility:[facility] Start: 03-05-2025 ambulatory [facility] Facility:[facility] Start: 02-27-2025 ambulatory [facility] Facility:[facility] Start: 02-14-2025 End: 02-14-[address] Francois Gutierrez MD -Laboratory Work Phone: Start: 02-14-2025 End: 02-14-2025 ambulatory Francois Gutierrez Facility:[facility] Start: 02-06-2025 End: 02-06-[address] Paty Garcia MD -Laboratory Work Phone: Start: 02-06-2025 End: 02-06-2025 Patient encounter procedure Denise Koehler -[facility] Work Phone: Start: 02-06-2025 End: 02-06-[address] Buster Jones MD Work Phone: [facility] Start: 02-06-2025 End: 02-06-2025 ambulatory Buster Chi Robert Facility:[facility] Start: 12-31-2024 End: 12-31-[address] Buster Jones MD Work Phone: -Radiology [facility] Start: 12-31-2024 End: 12-31-[address] Buster Jones MD -Radiology [facility] Work Phone: Start: 12-31-2024 End: 12-31-2024 ambulatory Buster Alfonso Mccloudok Facility:[facility] Start: 11-29-2024 End: 11-29-[address] Buster Jones MD Work Phone: -Radiology [facility] Start: 11-29-2024 End: 11-29-[address] Buster Jones MD -Radiology [facility] Work Phone: Start: 11-29-2024 End: 11-29-2024 ambulatory Buster Alfonso Mccloudok Facility:[facility] Start: 11-26-2024 End: 11-26-[address] Buster Jones MD Work Phone: -Laboratory [facility]rd [facility] Start: 11-26-2024 End: 11-26-[address] Buster Jones MD -Laboratory [facility]rd Fl[facility] Start: 11-26-2024 End: 11-26-2024 ambulatory Buster Jones Facility:[facility] Procedures Date Procedure Procedure Detail Performing Clinician Start: 02-27-2025 Vitamin D, 25-hydrox y measurement Dr. Buster Jones MD Work Phone: Comment on above: Vitamin D StatusDefi ciency: <20 ng/mL (50nmol/L)Insufficiency: 20-30 ng/mL (50-75 nmol/L)Sufficiency: 30-100 ng/mL (75-250 nmol/L)Toxicity: >100 ng/mL (>250 nmol/L) Start: 02-14-2025 Total iron binding c apacity measurement Dr. Buster Jones MD Work Phone: Start: 12-31-2024 Radiologic examinati on knee [address] Buster Jones MD Work Phone: Start: 11-29-2024 Plain X-ray abdomen Dr. Buster Jones MD Work Phone: Start: 11-26-2024 Hepatitis C antibody measurement Dr. Buster Jones MD Work Phone: Comment on above: Reactive: Presumptiv e evidence of antibodies to HCV. Follow CDC recommendations for supplemental testing.Non-Reactive: Antibodies to HCV were not detected; does not exclude the possibility of exposure to HCVReactive Results are presumptive evidence of antibodies to HCV. Follow CDC recommendations for supplemental testing.Order confirmation testing: HCV Quant by PCR testing - HCVPCR #[id number] Non Reactive: < 0.8 Equivocal: >/= 0.8 to < 1.0 Reactive: >/= 1.0The CDC requires that a reactive/equivocal HCV antibody result be sent out for confirmation. HCV Quant by PCR testing. Start: 11-26-2024 Vitamin D, 25-hydrox y measurement Dr. Buster Jones MD Work Phone: Comment on above: Vitamin D StatusDefi ciency: <20 ng/mL (50nmol/L)Insufficiency: 20-30 ng/mL (50-75 nmol/L)Sufficiency: 30-100 ng/mL (75-250 nmol/L)Toxicity: >100 ng/mL (>250 nmol/L) Plan of Treatment Date Care Activity Detail Author Start: 02-27-2025 X-ray of chest posteroanterior view Ribs Uni Min 3V w/PA Chest [facility] Start: 02-27-2025 Patient encounter procedure Registered Clinical -Radiology W Work Phone: Start: 02-25-2025 Registered Recurring Registered Recurring -Physical Therapy Work Phone: Start: 02-18-2025 Registered Recurring Registered Recurring -Physical Therapy Work Phone: Start: 02-14-2025 Patient encounter procedure Registered Clinical -Laboratory Work Phone: Start: 02-06-2025 End: 02-06-2025 Evaluation of diagnostic study results [facility] Start: 01-21-2025 Registered Recurring Registered Recurring -Physical Therapy Work Phone: [facility] Payers Date Payer Category Payer Self-pay 2024 Private Health Insurance [id number] Unknown [id number] Unknown [id number] 2.16.8 [id number] Unknown [id number] 2.16.8 [id number] Unknown [id number] 2.16.8 [id number] Unknown [id number] 2.16.8 [id number] Unknown [id number] 2.16.8 [id number] Unknown [id number] 2.16.8 [id number] Unknown [id number] 2.16.8 [id number] Unknown [id number] 2.16.8 [id number] Unknown [id number] 2.16.8 [id number] Unknown [id number] 2.16.8 [id number] Unknown [id number] 2.16.8 [id number] Unknown [id number] 2.16.8 [id number] Social History Date Type Detail Facility Tobacco smoking stat us PRIS Unknown if ever smoked [facility] Work Phone: Start: 1940 Sex Assigned At Female [facility] Sex Female [facility] Start: 01-28-2025 End: 01-28-2025 Tobacco smoking status NHIS Never smoked tobacco (finding) [facility] Procedure note 02-06-2025 Note Date & Type Note Facility 02-06-2025 Procedure note [facility] Evaluation note 02-06-2025 Note Date & Type Note Facility 02-06-2025 Evaluation note Diagnosis Onset Date Resolution History of complete heart block chronic February 06 7:48am History of permanent cardiac pacemaker placement chronic October 16th, 20 25 7:48am Coronary artery disease chronic O ctober 2024 7:49am History of complete heart block chronic February 06 7:49am History of permanent cardiac pacemaker placement chronic February 06 7:49am History of pulmonary embolism chronic February 06 7:49am Hypertension chronic January 7:49am [facility] Work Phone: Progress note 02-06-2025 Note Date & Type Note Facility 02-06-2025 Progress note [facility] Radiology Diagnostic study note 12-31-2024 Note Date & Type Note Facility 12-31-2024 Radiology Diagnostic study note [facility] Imaging Services [address] [place] [id number] Knee 3 Views MR#: [id number] Acct: [id number] Name: GABE OCAMPO Rep #: [id number] : 1940 F 84 From: Pramod Hoff MD PCP: Dr. Buster Jones MD Status: REG C LI Study:Knee 3 Views Date of Exam: 5 Exam# [id number] Ordering Dr: Buster Jones MD PROCEDURE: KNEE 3 VIEWS 12/31/2024 REASON FOR EXAM: LEG CRAMPS TECHNIQUE: Procedure Code: RADPAT Modality: DX Procedure: KNEE 3 VIEWS Laterality: FINDINGS: No evidence acute fracture or dislocation. Moderate degenerative changes of theknee. No knee joint effusion. RAD/Knee 3 Views IMPRESSION: No acute osseous abnormalities. Osteoarthrosis. Reading Location: [id number] CC: Dr. Buster Jones MD ~ Counseling Case Manager: Signed [facility] Radiology Diagnostic study note 11-29-2024 Note Date & Type Note Facility 11-29-2024 Radiology Diagnostic study note [facility] Imaging Services [address] [place] [id number] Abd Inc Decub and/or Erect MR#: [id number] Acct: [id number] Name: GABE OCAMPO Rep #: [id number] : 1940 F 84 From: Delvin Aguilera MD PCP: Dr. Buster Jones MD Status: REG C JENIFFER Study:Abd Inc Decub and/or Erect Date of Exam : 11/29/24 Exam# [id number] Ordering Dr: Buster Jones MD PROCEDURE: ABD INC DECUB AND/OR ERECT 11/29/2024 REASON FOR EXAM: CHRONIC DIARRHEA TECHNIQUE: Three-view supine and upright abdomen COMPARISON: None. RAD/Abd Inc Decub and/or Erect IMPRESSION: No evidence of pneumoperitoneum. Right hemidiaphragm elevation is noted. A partially calcified aorta is seen. Minimal left and mild right sacroiliac joint degenerative changes are seen. Uiri-bz-dckwoopo degenerative changes are seen throughout the spine. The bowel-gas pattern is unremarkable. No excess stool burden is seen. No mass or mass effect is noted. Reading Location: [place] [address] CC: Dr. Buster Jones MD ~ Counseling Case Manager: Signed [facility] Evaluation note Note Date & Type Note Facility Evaluation note No assessment information availa ble [facility] Work Phone: Evaluation note Note Date & Type Note Facility Evaluation note Diagnosis Onset Date Resolution History of complete heart block chronic February 06 7:48am History of permanent cardiac pacemaker placement chronic February 06 7:48am Coronary artery disease chronic O ctober 2024 7:49am History of complete heart block chronic February 06 7:49am History of permanent cardiac pacemaker placement chronic February 06 7:49am History of pulmonary embolism chronic February 06 7:49am Hypertension chronic January 7:49am [facility] Work Phone: Progress note Note Date & Type Note Facility Progress note Note Date/Time February 06, 2025 9:32am [facility] [address] [place] [address] OFFICE VISIT Date of Service: 02/06/25 MR#: [id number] Acct: [id number] Name: GABE OCAMPO Rep #: [id number] : 1940 Provider: Dr. Srinivasan Garcia MD Age/Sex: 84/F Location[place] [facility] Status: Signed HPI HPI History of Present Illness Details: This pleasant lady has past medical history significant for sick sinus syndrome with complete heart block, status post permanent pacemaker dual-chamber in 2022,mild coronary artery disease diagnosed on coronary angiography in November of lastyear, hypertension and pulmonary embolism. She has recently moved to the area from [facility] and wishes to establish cardiac care with us. Complains of occasional chest discomfort. Not related to exertion. No radiation to the arm neck or jaw. Some shortness of breath with exertion. Denies orthopnea PND. Occasional ankle edema. Denies any palpitations. No lightheadedness or dizziness. No syncope or presyncope. Intake Vital Signs 02/06/25 09:02 Height 5 ft 2 in Weight: 214 lb BMI 39.1 BP 146/77 H Blood Pressure Location Lt brachial Position Sitting Respiration 18 Pulse 66 Pulse Source Monitor Intake Visit Reasons: Hx of Pacemaker (Robert)/Sees Delores Mondragon@ 8:30 Manager Continuous Improvement Required: No Accompanied by: Self Is patient in pain?: No Allergies adhesive tape Allergy (Unknown, Verified 02/06/25 08:53) unknown alendronate sodium (From Fosamax) Allergy (Unknown, Verified 02/06/25 08:53) unknown Wpyscwd-DII-NnV Reductase Inhibitor Allergy (Unknown, Verified 02/06/25 08:53) unknown Sulfa (Sulfonamide Antibiotics) Allergy (Unknown, Verified 02/06/25 08:53) unknown egg Adverse Reaction (Verified 02/06/25 08:53) Diarrhea milk Adverse Reaction (Verified 02/06/25 08:53) Diarrhea Medications ?Medication ?Instructions ?Recorded ?Confirmed ?Type apixaban 5 mg tablet (Eliquis) 5 mg PO BID 01/28/25 History cetirizine 10 mg tablet 10 mg PO QDAY 01/28/2502/06 History cranberry extract 425 mg capsule 425 mg PO QDAY 02/06/25 History levothyroxine 137 mcg capsule 137 mcg PO QDAY 01/28/25 02/06/25 History ropinirole 1 mg tablet 1 mg PO QDAY 01/28/25 History sertraline 100 mg tablet 100 mg PO QDAY 01/28/2501/22 History ckosw-y-acaotymcxxbhq 450 unit PO QDAY 02/06/25 History metoprolol tartrate 25 mg tablet 25 mg PO BID 02/06/25 02/06/25 History Have you fallen in the past year?: Yes (woke up in chair, stood up and fell) PFS Medical History (Updated 02/06/25 @ 09:[address] Paty Garcia MD) History of left heart catheterization Pacemaker Sleep apnea Restless leg syndrome Depression Pulmonary embolism Hyperlipidemia Hypothyroidism Surgical History (Updated 02/06/25 @ 09:[address] Paty Garcia MD) History of left knee replacement H/O hand surgery Hx of hysterectomy, total History of foot surgery Family History Brother CVA (cerebral vascular accident) Myocardial infarction Diabetes Sister Diabetes Father , at age of 50 Celiac disease/sprue Social History Smoking Status: Never smoker substance use type: does not use ROS Const Const: Positive for fatigue; Negative for weakness Eyes Eyes: Negative for change in vision ENT ENT: Positive for balance problems; Negative for dizziness Cardio Chest Pain: Yes Frequency: daily Character: dull Location: left chest Duration: minutes Palpitations: No Edema: None Resp Respiratory: Positive for SOB with activity; Negative for SOB at rest or SOB orthopnea\SOB lying down GI GI: Negative nausea or heartburn Musc Musc: Positive for balance problems Neuro Neuro: Negative for dizziness, lightheadedness, near syncope, syncope or weakness Endo Endo: Positive for fatigue Cardiology Exam Const Appearance: comfortable and no acute distress Nutritional Appearance: well nourished Neck Neck: no JVD Carotids: Negative bruit Chest Auscultation: Bilateral: Clear to Auscultation Cardio Rate: regular rate Rhythm: regular rhythm Heart sounds: S1 normal and S2 normal Neuro General: patient alert, patient awake and patient oriented x3 Extremities Lower Extremity Edema: None: Bilateral Supplemental Info Supplemental Information Labs: HDL Cholesterol, (40-) 59 mg/dL Cholesterol, (<=200) 265 mg/dL H Triglycerides, (-199) 103 mg/dL Past Visits: Cardiology Visit Today Assessment and Plan Assessment and Plan (1) History of complete heart block: Status: Chronic Plan: Dual chamber permanent pacemaker installed in 2022. Enroll at the pacemaker clinic here. ECG done in the office today shows atrial sensed and ventricular paced. (2) History of permanent cardiac pacemaker placement: Status: Chronic Plan: Enroll at the pacemaker clinic. (3) Coronary artery disease: Status: Chronic Plan: Mild CAD reported on coronary angiography done last year at [place]. 20% LAD. Interestingly, the patient does not remember if she has had coronary angiography done. On apixaban. Risk factor modification. Check lipid profile. Target LDL cholesterol less than 70 mg/dL. Check echo. (4) Hypertension: Status: Chronic Plan: Blood pressure above goal. Start on metoprolol 25 mg twice daily. (5) History of pulmonary embolism: Status: Chronic Plan: On apixaban. Orders: Orders 12 Lead EKG performed by [facility] Today E03.9 - Hypothyroidism, unspecified, Z95.0 -Presence of cardiac pacemaker Echo Complete Today R06.09 - Other forms of dyspnea, R94.31 - Abnormal electrocardiogram [ECG] [EKG] Lipid Profile Today I10 - Essential (primary) hypertension, I25.10 - Atherosclerotic heart disease of [place] coronary artery without angina pectoris,Z86.79 - Personal history of other diseases of the circulatory system, Z95.0 - Presence of cardiac pacemaker Medications: New metoprolol tartrate 25 mg PO BID Plan Details Follow Up: 6 Months Coding Level of Care Code Off vis,new,level 4 Diagnoses History of complete heart block Z86.79 History of permanent cardiac pacemaker placement Z95.0 Coronary artery disease I25.10 Hypertension I10 History of pulmonary embolism Z86.711 Coding Level of Care Code Off vis,new,level 4 Diagnoses History of complete heart block Z86.79 History of permanent cardiac pacemaker placement Z95.0 Coronary artery disease I25.10 Hypertension I10 History of pulmonary embolism Z86.711 Clinical Quality Measures Falls Risk Screening/Assistive Devices Have you fallen in the past year?: Yes (woke up in chair, stood up and fell) 02/06/25 0932 <Electronically signed by Paty Garcia MD> Date _ Paty Méndez Signature: Date (if applicable) CC: ~ [facility] Work Phone: Reason for referral (narrative) Note Date & Type Note Facility Reason for referral (narrative) No reason for referral information available [facility] Work Phone: Chief Complaint and Reason for Visit Chief Complaint Admit Date R KNEE RX HERE January 21, 2025 9:30am Chief Complaint Admit Date Establish Pacer Care/Sees AR @ February 06, 2025 7:48am Hx of Pacemaker (Robert)/Sees Delores R@ 8:30 February 06, 2025 7:49am Pacer Check Remote February 06, 2025 9 :00am INT LABS February 06, 2025 9 :41am R KNEE RX HERE February 18, 2025 1 0:00am Reason for Visit Admit Date History of complete heart block February 06, 2025 7:48am History of permanent cardiac pacemaker p lacement February 06, 2025 7:48am Coronary artery disease February 06 7:49am History of complete heart block February 06, 2025 7:49am History of permanent cardiac pacemaker p lacement February 06, 2025 7:49am History of pulmonary embolism February 062024 7:49am Hypertension February 06, 2025 7 :49am Chief Complaint Admit Date Establish Pacer Care/Sees AR @ February 06, 2025 7:48am Hx of Pacemaker (Robert)/Sees Delores R@ 8:30 February 06, 2025 7:49am Pacer Check Remote February 06, 2025 9 :00am INT LABS February 06, 2025 9 :41am R KNEE RX HERE February 25, 2025 9 :30am Family History Relationship Condition Age at Onset Recorded Date/T rosemary brother Cerebrovascular accident (CVA) Unknown Myocardial infarction Unknown Diabetes mellitus Unknown sister Diabetes mellitus Unknown father Celiac disease Unknown Summary Purpose Advance Directives No Advanced Directives Records Found Additional Source Comments Care Teams (unrecognized sec tion and content) Team Status: Active Member Role/Relationship Status Dates Out of [facility] Doctor Family Provider Active Dr. Buster Jones MD Primary Care Provider Active Team Status: Inactive Member Role/Relationship Status Dates Dr. Buster Jones MD Primary Care Provider Active Start: November 26, 2024 End: November 26, 2024 Dr. Buster Jones MD Attending Provider Active Start: November 26, 2024 End: November 26, 2024 Team Status: Active Member Role/Relationship Status Dates Dr. Buster Jones MD Primary Care Provider Active Start: November 29, 2024 Dr. Buster Jones MD Attending Provider Active Start: November 29, 2024 Dr. Buster Jones MD Referring Provider Active Start: November 29, 2024 Team Status: Inactive Member Role/Relationship Status Dates Dr. Buster Jones MD Primary Care Provider Active Start: November 29, 2024 End: November 29, 2024 Dr. Buster Jones MD Attending Provider Active Start: November 29, 2024 End: November 29, 2024 Dr. Buster Jones MD Referring Provider Active Start: November 29, 2024 End: November 29, 2024 Team Status: Active Member Role/Relationship Status Dates Dr. Buster Jones MD Primary care physician Active Team Status: Inactive Member Role/Relationship Status Dates Dr. Buster Jones MD Primary care physician Active Start: November 26, 2024 End: November 26, 2024 Dr. Buster Jones MD Attending physician Active Start: November 26, 2024 End: November 26, 2024 Team Status: Inactive Member Role/Relationship Status Dates Dr. Buster Jones MD Primary care physician Active Start: November 29, 2024 End: November 29, 2024 Dr. Buster Jones MD Attending physician Active Start: November 29, 2024 End: November 29, 2024 Dr. Buster Jones MD Referring Provider Active Start: November 29, 2024 End: November 29, 2024 Team Status: Inactive Member Role/Relationship Status Dates Dr. Buster Jones MD Primary care physician Active Start: December 31, 2024 End: December 31, 2024 Dr. Buster Jones MD Attending physician Active Start: December 31, 2024 End: December 31, 2024 Dr. Buster Jones MD Referring Provider Active Start: December 31, 2024 End: December 31, 2024 Team Status: Active Member Role/Relationship Status Dates Dr. Buster Jones MD Primary care physician Active Start: January 21, 2025 Dr. Buster Jones MD Attending physician Active Start: January 21, 2025 Dr. Buster Jones MD Referring Provider Active Start: January 21, 2025 Team Status: Inactive Member Role/Relationship Status Dates Dr. Buster Jones MD Primary care physician Active Start: February 06, 2025 End: February 06, 2025 Dr. Buster Jones MD Referring Provider Active Start: February 06, 2025 End: February 06, 2025 Denise Koehler Attending physician Active Start: February 06, 2025 End: February 06, 2025 Team Status: Inactive Member Role/Relationship Status Dates Dr. Buster Jones MD Primary care physician Active Start: February 06, 2025 End: February 06, 2025 Dr. Buster Jones MD Referring Provider Active Start: February 06, 2025 End: February 06, 2025 Dr. Paty Garcia MD Attending physician Active Start: February 06, 2025 End: February 06, 2025 Team Status: Inactive Member Role/Relationship Status Dates Dr. Buster Jones MD Primary care physician Active Start: February 06, 2025 End: February 06, 2025 Dr. Lemuel Green MD Attending physician Active Start: February 06, 2025 End: February 06, 2025 Team Status: Inactive Member Role/Relationship Status Dates Dr. Buster Jones MD Primary care physician Active Start: February 06, 2025 End: February 06, 2025 Dr. Paty Garcia MD Attending physician Active Start: February 06, 2025 End: February 06, 2025 Dr. Paty Garcia MD Referring Provider Active Start: February 06, 2025 End: February 06, 2025 Team Status: Active Member Role/Relationship Status Dates Dr. Buster Jones MD Primary care physician Active Start: February 14, 2025 Dr. Francois Gutierrez MD Attending physician Active Start: February 14, 2025 Dr. Francois Gutierrez MD Referring Provider Active Start: February 14, 2025 Team Status: Active Member Role/Relationship Status Dates Dr. Buster Jones MD Primary care physician Active Start: February 18, 2025 Dr. Buster Jones MD Attending physician Active Start: February 18, 2025 Dr. Buster Jones MD Referring Provider Active Start: February 18, 2025 Team Status: Inactive Member Role/Relationship Status Dates Dr. Buster Jones MD Primary care physician Active Start: February 06, 2025 End: February 06, 2025 Dr. Lemuel Green MD Attending physician Active Start: February 06, 2025 End: February 06, 2025 Dr. Lemuel Green MD Referring Provider Active S tart: February 06, 2025 End: February 06, 2025 Team Status: Inactive Member Role/Relationship Status Dates Dr. Buster Jones MD Primary care physician Active Start: February 06, 2025 End: February 06, 2025 Dr. Lemuel Green MD Attending physician Active Start: February 06, 2025 End: February 06, 2025 Dr. Lemuel Green MD Referring Provider Active S tart: February 06, 2025 End: February 06, 2025 Team Status: Inactive Member Role/Relationship Status Dates Dr. Buster Jones MD Primary care physician Active Start: February 14, 2025 End: February 14, 2025 Dr. Francois Gutierrez MD Attending physician Active Start: February 14, 2025 End: February 14, 2025 Dr. Francois Gutierrez MD Referring Provider Active Start: February 14, 2025 End: February 14, 2025 Team Status: Active Member Role/Relationship Status Dates Dr. Buster Jones MD Primary care physician Active Start: February 25, 2025 Dr. Buster Jones MD Attending physician Active Start: February 25, 2025 Dr. Buster Jones MD Referring Provider Active Start: February 25, 2025 Team Status: Active Member Role/Relationship Status Dates Dr. Buster Jones MD Primary care physician Active Start: February 27, 2025 Dr. Buster Jones MD Attending physician Active Start: February 27, 2025 Goals (unrecognized section and content) Goals may be documented in a n alternate sectionGoals may be documented in an alternate sectionGoals may be documented in an alternate sectionGoals may be documented in an alternate sectionGoals may be documented in an alternate sectionGoals may be documented in an alternate section INFORMATION SOURCE (unrecogn ized section and content) DATE CREATED AUTHOR 03/06/2025 [facility] FOR RECORDS PERTAINING TO PATIENTS WHO ARE OR HAVE BEEN ENROLLED IN A CHEMICAL DEPENDENCY/SUBSTANCEABUSE PROGRAM, SOME INFORMATION MAY BE OMITTED. This clinical summary was aggregated from multiple sources. Caution should be exercised in using it in the provision of clinical care. This summary normalizes information from multiple sources, and as a consequence, information in this document may materially change the coding, format and clinical context of patient data. In addition, data may be omitted in some cases. CLINICAL DECISIONS SHOULD BE BASED ON THE PRIMARY CLINICAL RECORDS. [employer] provides no warranty or guarantee of the accuracy or completeness of information in this document.
[2025-04-03 23:58] LABS: AST(SGOT) 25 U/L (<=31); Alanine Aminotransfer ALT/SGPT 17 U/L (<=34); Albumin, Serum 4.0 g/dL (3.4-4.8); Alkaline Phosphatase 114 U/L (35-104); Anion Gap 12 (5-15); BUN 19 mg/dL (4-19); BUN/Creat Ratio 26.8 RATIO (10-20); Calcium,Total 9.3 mg/dL (7.6-11.0); Carbon Dioxide 23.4 mmol/L (21.0-32.0); Chloride 102 mmol/L (98-108); Estimated Creatinine Clearance 58.88 ml/min (50-250); Globulin 3.4 g/dL (2.2-4.2); Glucose 113 mg/dL (70-99); Lipase 28 U/L (13-75); Potassium 4.3 mmol/L (3.3-5.1)
[2025-04-04 00:06] LABS: Mucous, Urine 0 SEEN /hpf (<or=2+)
[2025-04-04 00:08] LABS: Color, Urine Straw (Yellow); Glucose, Dipstick Normal (Normal); Ketone-Dipstick Negative (Negative); Leukocyte Esterase-Dipstick Negative /ul (Negative); Nitrite-Dipstick Negative (Negative); Occult Blood-Urine 25 /ul (Negative); Protein-Dipstick 15 mg/dl (Negative); Specific Gravity, Urine 1.010 (1.002-1.030); Urine Bilirubin Dipstick Negative (Negative)
[2025-04-04 00:31] LABS: Red Blood Cells-Urine 5-10 SEEN /hpf (0-5); Squamous Epithelial Cells - UA 0-5 SEEN /hpf (5-10)
[2025-04-04 00:45] VITALS: BP 159/80; PULSE 93; RESP 18; O2SAT 93
[2025-04-04 00:57] VITALS: O2SAT 88
--- NOTE | 2025-04-04 00:58 | EDS_ITS ---
HPI History of Present Illness Chief Complaint: Abd Pain Narrative Narrative: Patient was seen and examined after presenting to ED for right flank pain started tonight denies having fevers or chills endorses nausea no vomiting denies constipation or history of kidney stones she is on Eliquis for history of PE. [facility] Medical History History of left heart catheterization Pacemaker Sleep apnea Restless leg syndrome Depression Pulmonary embolism Hyperlipidemia Hypothyroidism Home Medications ?Medication ?Instructions ?Recorded ?Last Taken ?Type apixaban 5 mg tablet (Eliquis) 5 mg PO BID 01/28/25 Un known History cetirizine 10 mg tablet 10 mg PO QDAY 01/28/25 Unkno wn History cranberry extract 425 mg capsule 425 mg PO QDAY Unknown History levothyroxine 137 mcg capsule 137 mcg PO QDAY 01/28/25 Unknown History ropinirole 1 mg tablet 1 mg PO QDAY 01/28/25 Unknow n History sertraline 100 mg tablet 100 mg PO QDAY 01/28/25 Unkn own History ytvvt-f-tyotxfenmkvtv 450 unit PO QDAY 02/06/25 Un known History lisinopril 5 mg tablet 5 mg PO QDAY #30 tabs Unknown Rx Allergy/AdvReac Type Severity Reaction Status Date / Time adhesive tape Allergy Unknown unknown Verified 04/03/25 22:46 alendronate sodium (From Allergy Unknown unknown Verified 04/03/25 22:46 Fosamax) Fimidej-SAL-GzY Reductase Allergy Unknown unknown Verified 04/03/25 22:46 Inhibitor Sulfa (Sulfonamide Allergy Unknown unknown Verified 04/03/25 22:46 Antibiotics) egg AdvReac Diarrhea Verified 04/03/25 22:46 milk AdvReac Diarrhea Verified 04/03/25 22:46 Family History Brother CVA (cerebral vascular accident) Myocardial infarction Diabetes Sister Diabetes Father , at age of 50 Celiac disease/sprue Surgical History History of left knee replacement H/O hand surgery Hx of hysterectomy, total History of foot surgery Social History Smoking Status: Never smoker substance use type: does not use ROS ROS ED ROS Narrative Pertinent Positives: Anticoagulated on Eliquis for history of PE right flank pain nausea Pertinent Negatives: Chest pain shortness of breath vomiting diarrhea black or bloody stools The remainder of review of systems negative unless otherwise stated in the HPI above. Systems reviewed including constitutional, psychiatric, cardiovascular, respiratory, integument, HENT, gastrointestinal. EXAM Physical Exam Narrative Exam Narrative: Afebrile hemodynamically stable does not appear toxic or in respiratory distress normal heart and lung sounds abdomen is soft has some right-sided pain on palpation mostly right CVA tenderness no overlying skin changes such as erythema or vesicular lesions hemorrhagic bullae bruising and no crepitus. She has intact and equal MSPs in all of her extremities Const Vital Signs: 04/03/25 22:45 04/03/25 22:52 04/04/25 00:45 Temperature 98.7 F Temperature Source Oral Pulse Rate 88 93 Respiratory Rate 18 18 Blood Pressure 185/94 H 159/80 H Blood Pressure Mean 124 106 Pulse Ox 93 93 Oxygen Delivery Method Room Air Room Air 04/04/25 00:57 Temperature Temperature Source Pulse Rate Respiratory Rate Blood Pressure Blood Pressure Mean Pulse Ox 88 Oxygen Delivery Method Room Air MDM MDM MDM Narrative Medical decision making narrative: Nursing notes, triage notes, available previous documentation, and vital signs were reviewed. Any discrepancies noted were addressed. Differential Diagnoses: Nephrolithiasis lower suspicion for aortic etiology to be pyelonephritis or constipation lower suspicion for bowel obstruction Interventions: Morphine Zofran Fluids Given: 1 L normal saline Labs Reviewed: Leukocytosis 12.0 hemoglobin is 11.6 no electrolyte abnormality or renal insufficiency or transaminitis. No electrolyte abnormality renal insufficiency transaminitis lipase is 28 Imaging Reviewed: Personally reviewed and interpreted by me: CT abdomen and pelvis I do not see any evidence of hydronephrosis or nephrolithiasis or significant evidence of constipation official read is without acute pathology Previous Documentation Reviewed: None available or applicable at this time. ED Course: Patient presenting with right flank pain has slight leukocytosis CT was unremarkable urinalysis still pending. Patient's labs besides a leukocytosis of being just slightly elevated at 12 were fairly unremarkable urine is still pending 04/04/2025 at 0225: Urine without evidence of infection at this point in time patient stable for discharge home return precautions follow-up recommendations provided This note was made utilizing voice recognition software. All attempts were made to correct spelling or other errors prior to note completion. However, due to the fast-paced nature of emergency medicine, some errors may still be present. Lab Data Labs: Laboratory Results - last 24 hr 04/03/25 04/03/25 00:03 23:21 WBC 12.0 H RBC 4.08 L Hgb 11.6 L Hct 36.1 L MCV 88.5 MCH 28.4 MCHC 32.1 RDW Std Deviation 45.1 H RDW Coeff of Faizan 13.9 Plt Count 312 MPV 10.2 Immature Gran % (Auto) 0.300 Neut % (Auto) 70.6 H Lymph % (Auto) 18.9 L [place] % (Auto) 9.2 Eos % (Auto) 0.5 Baso % (Auto) 0.5 Absolute Neuts (auto) 8.5 H Absolute Lymphs (auto) 2.27 Nucleated RBC % 0 Sodium 137 Potassium 4.3 Chloride 102 Carbon Dioxide 23.4 Anion Gap 12 BUN 19 Creatinine 0.71 Estim Creat Clear Calc 58.88 Est GFR (MDRD) Non-Af 83 BUN/Creatinine Ratio 26.8 H Glucose 113 H Calcium 9.3 Total Bilirubin 0.36 AST 25 ALT 17 Alkaline Phosphatase 114 H Total Protein 7.4 Albumin 4.0 Globulin 3.4 Albumin/Globulin Ratio 1.2 Lipase 28 Urine Color Straw Urine Clarity Clear Urine pH 7.0 Ur Specific [place] 1.010 Urine Protein 15 H Urine Glucose (UA) Normal Urine Ketones Negative Urine Occult Blood 25 H Urine Nitrite Negative Urine Bilirubin Negative Urine Urobilinogen Normal Ur Leukocyte Esterase Negative Urine RBC 5-10 SEEN Urine WBC 0-5 SEEN Ur Squamous Epith Cells 0-5 SEEN Urine Bacteria RARE Urine Mucus 0 SEEN Radiography Diagnostic Testing: Clinical Impression(s) from Imaging Studies Abdomen/Pelvis CT 04/03/25 23:00 IMPRESSION: No acute pelvi-abdominal abnormalities, collections or free air. Moderate to large sized hiatus hernia. Colonic diverticulosis. No diverticulitis. Cardiomegaly. Mild right pleural effusion. Reading Location: [place] [id number] Discharge Plan Triage Chief Complaint: Abd Pain ED Provider: Choujaa,Nidal Dx/Rx/DC Orders Clinical Impression: Right flank pain, Nausea Instructions: ED Flank Pain with Uncertain Cause Prescriptions: No Action cranberry extract 425 mg capsule 425 mg PO QDAY Rx Instructions: administer with a meal cetirizine 10 mg tablet 10 mg PO QDAY levothyroxine 137 mcg capsule 137 mcg PO QDAY Eliquis 5 mg tablet 5 mg PO BID ropinirole 1 mg tablet 1 mg PO QDAY Patient Comments: may also take as needed sertraline 100 mg tablet 100 mg PO QDAY [id number] Tablet 450 unit PO QDAY lisinopril 5 mg tablet 5 mg PO QDAY Qty: 30 11RF Primary Care Provider: Buster Jones Chi Referrals: Buster Jones Chi, MD [Primary Care Provider, Geriatrics] Activity Restrictions/Additional Instructions: I recommend that you follow-up with your primary care doctor. Patient always return if you feel like you are getting worse but we did do a CT of your stomach which does not show any acute conditions that would otherwise contribute to your symptoms your blood work and your urine sample were also unable to provide any additional answers we recommend they take Tylenol and ibuprofen for your symptoms and make sure you stay well-hydrated. Print Language: Surinamese Disposition Disposition: Home, Self Care
[2025-04-04 02:00] VITALS: BP 167/92; PULSE 97; RESP 22; TEMP 36.8; O2SAT 92
== END 2025-04-04 02:53 | disposition home or self-care (01) ==
PROVIDERS: Emergency Provider Specialist/Technologist Athletic Trainer; PCP Family Medicine Geriatric Medicine; Visit Provider Specialist/Technologist Athletic Trainer
DX: R10.A1 Flank pain, right side (principal); R11.0 Nausea; F32.A Depression, unspecified; E03.9 Hypothyroidism, unspecified; E78.5 Hyperlipidemia, unspecified; G25.81 Restless legs syndrome; Z95.0 Presence of cardiac pacemaker; Z79.01 Long term (current) use of anticoagulants; Z86.711 Personal history of pulmonary embolism; Z79.890 Hormone replacement therapy; Z79.899 Other long term (current) drug therapy
CPT/HCPCS: 74177; 80053; 81001; 83690; 85025; 96361; 96374; 96375; 96376; 99285; Q9967; A4216; J2405

== ENCOUNTER 2025-04-08 10:00 | Outpatient (RCR) | payer MEDICARE, SELFPAY ==
--- NOTE | 2025-01-22 10:30 | HP.PTEVAL_ITS ---
Patient's Visit Information Visit Information Visit Information: GABE OCAMPO is a 84 year old F referred to Physical Therapy by Dr. Buster Jones MD with a diagnosis of R knee pain. Date of Evaluation: 01/08/25 Physical Therapist: Skinny Boggs DPT Visit Plan Frequency: 2x /Week Duration: 6 Weeks Plan: 1) RLE strengthening, start with [place] then progress to [place] as tolerated. 2) May use US as needed for pain control. Subjective Subjective: Pt. is here today for her initial evaluation with diagnosis of R knee pain. Pt. 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 Pt. was doing well, but started to have pain in her R knee with doing classes. Pt. reports no N/T in either LE. Pt. reports not giving out on her. Pt. reports doing exercises, but not sure which ones to do. She has had hold off exercises due to her knee pain. Pt. reports minimal pain at rest. Pt. is sleeping well without issues. She would like to be able get back to walking without issues and getting back to all of her classes without increase in symptoms. Pain R knee: Pain Intensity (Out of 10): 3 Pain Intensity Range: 1 and 5 Objective Objective: POSTURE: Pt. has normal posture in stance. Pt. has slight increase in knee valgus positioning. Pt. has slight increased wt. shift to L side in stance. PALPATION: Pt has mild pain with palpation of medial joint line. NEURO: normal throughout. ROM: R knee: 0-4-110deg. Pt. has tightness in B HS and quads MMT: RLE 4+/5 throughout; L knee: 5-/5 throughout GAIT: Pt. ambulates with SPC with okay tolerance. Pt. has increased lateral sway, but not marked [place] noted. STAIRS: step to pattern noted loading LLE only. Uses of 2 HR to complete. Balance/Special Test Scores Lower Extremity Functional Score: 34 Goals Goal 1:: LTG: Pt. to have increased R knee ROM to full without increase in symptoms allowing for increased tolerance to ADLs. Goal Time Frame: 4-6 Weeks Goal 2:: LTG: Pt. to have increased RLE strength to 5/5 throughout to reduce stress to knee with all functional mobility. Goal Time Frame: 4-6 Weeks Goal 3:: LTG: Pt. to complete all gym classes without increase in R knee pain. Goal Time Frame: 4-6 Weeks Goal 4:: LTG: Pt. to be able to negotiate 1 flight of stairs with 1 HR with reciprocal pattern. Goal Time Frame: 4-6 Weeks Rehabilitation Potential Physical Therapy Diagnosis: Pt. has signs and symptoms consistent with R knee pain, due to OA. Pt. has marked hypomobility, weakness and would benefit from PT to address the above limitations. Rehabilitation Potential: Good Anticipated Interventions Patient/Client Instruction: Educate patient on: Condition, Plan of Care, Risk Factors and Benefits of Fitness Program For the Purpose of:: To foster healthy habits, To improve decision making, To facilitate caregiver knowledge, To improve self management, To prevent re-injury and To improve ability to perform tasks related to life management Therapeutic Exercise to Include: Strength training, Power training, Balance training, Flexibilty training, Passive ROM and Active ROM For the Purpose of:: To decrease pain, To decrease swelling/inflammation, To increase ROM, To improve nutrient delivery to tissue, To increase oxygenation perfusion, To improve muscle performance and motor function, To improve gait and locomotor functions, To improve health of tissue, To decrease soft tissue r estriction and To increase flexibility/ROM Ultrasound (thermal/non thermal): Yes For the Purpose of:: To decrease pain, To decrease swelling/inflammation, To increase ROM, To improve nutrient delivery to tissue and To increase oxygenation perfusion Text: Thank you for the opportunity to evaluate your patient. For Medicare and Medicare HMO plans, please review the plan of care and approve it. It will need to be FAXED BACK to us at [phone] for Medicare purposes. For Medicare only, by signing this I certify the plan of care. Please let me know if there are questions or concerns regarding this plan of care. Physician Signature: ___Date:
== END 2025-04-08 19:00 | disposition home or self-care (01) ==
LOC: PT 10:00
PROVIDERS: PCP Family Medicine Geriatric Medicine; Referring Provider Family Medicine Geriatric Medicine; Visit Provider Family Medicine Geriatric Medicine
DX: M25.561 Pain in right knee (principal)
CPT/HCPCS: 97110; 97161; 97530